=== PATIENT | female | born 2000 | race Caucasian/White ===

== ENCOUNTER 2023-01-29 07:56 | Outpatient (AMB) | payer OTHER, SELFPAY ==
--- NOTE | 2023-01-29 08:00 | AM.OFFWIN_ITS ---
Intake Vital Signs 01/29/23 08:01 Height 5 ft 4 in Weight 238 lb BMI 40.8 BP 128/72 Blood Pressure Location Rt brachial Position Sitting Pulse 73 Pulse Source Pulse Oximeter Temp 97.8 F Temp Source Temporal Artery Scan Pulse Oximetry (%) 98 Intake Visit Reasons: EP Control Intake Note: pt is here forrequesting control Patient Tobacco Use Status: Never used Tobacco Allergies No Known Allergies Allergy (Verified 01/29/23 08:07) Medication List - Last Reconciled 01/29/23 by Raphael Medina MD albuterol sulfate 90 mcg/actuation 1 inh inhalation QID PRN fexofenadine (Martha Allergy) 180 mg PO DAILY Do you need a note to return to daycare/school/sports/work: Yes HPI EP Control HPI Details 22-year-old female presents to the [facility] for a sick visit. She is requesting a prescription for for control medications. Patient is going to be using it for the 1st time. Her primary care provider is not available. Patient has had no residence counselor exam in the past. The pills are for regulate her menstruation and for control. [facility] Medical History (Updated 01/29/23 @ 08:08 by Raphael Medina MD) COVID-19 virus infection Social History Patient Tobacco Use Status: Never used Tobacco Physical Exam Vital Signs: Last Vital Signs Temp 97.8 F 01/29/23 08:01 Pulse 73 01/29/23 08:01 BP 128/72 01/29/23 08:01 Pulse Ox 98 01/29/23 08:01 BMI result Body Mass Index 40.8 Const General: cooperative, healthy appearing and comfortable Assessment & Plan Assessment & Plan (1) BCP ( control pills) initiation: Code(s): Z30.011 - Encounter for initial prescription of contraceptive pills Plan: Urine test was negative for . A residence counselor appointment for a routine Pap smear has been requested. Low-dose estrogen control pills started. Coding Level of Care Code Est Pt Level 3 (34033) Diagnoses BCP ( control pills) initiation Z30.011
[2023-01-29 08:01] VITALS: BP 128/72; PULSE 73; TEMP 36.6; O2SAT 98; BMI 40.8
== END 2023-01-29 08:52 | disposition home or self-care (01) ==
LOC: HO.HMGWI 07:56
PROVIDERS: PCP Hospitalist
DX: Z30.011 Encounter for initial prescription of contraceptive pills (principal); Z32.02 Encounter for pregnancy test, result negative
CPT/HCPCS: 81025; 99213

== ENCOUNTER 2023-04-03 11:56 | Outpatient (AMB) | payer OTHER, SELFPAY ==
--- NOTE | 2023-04-03 13:36 | MHC.OFFWIV ---
Intake Vital Signs 04/03/23 13:38 Height 5 ft 4 in Weight 300 lb BMI 51.5 BP 114/72 Blood Pressure Location Rt brachial Position Sitting Pulse 99 Pulse Source Pulse Oximeter Temp 95.2 F L Temp Source Temporal Artery Scan Pulse Oximetry (%) 100 Oxygen Delivery Method Room Air Intake Visit Reasons: EST/ control(until visit w OBGYN) Intake Note: Pt is here requesting control medication. Patient Tobacco Use Status: Never used Tobacco Allergies No Known Allergies Allergy (Verified 04/03/23 13:37) Do you need a note to return to daycare/school/sports/work: No HPI EST/ control(until visit w OBGYN) HPI Details 22-year-old female presents to the office requesting control pills. She has an upcoming appointment with a child psychometrist. Currently she has no primary care provider. [facility] Medical History (Updated 01/29/23 @ 08:08 by Raphael Medina MD) COVID-19 virus infection Social History Patient Tobacco Use Status: Never used Tobacco Physical Exam Vital Signs: Last Vital Signs Temp 95.2 F L 04/03/23 13:38 Pulse 99 04/03/23 13:38 BP 114/72 04/03/23 13:38 Pulse Ox 100 04/03/23 13:38 Oxygen Delivery Method Room Air 04/03/23 13:38 BMI result Body Mass Index 51.5 Assessment & Plan Assessment & Plan (1) BCP ( control pills) initiation: Code(s): Z30.011 - Encounter for initial prescription of contraceptive pills Plan: Prescription sent in. Medications: Refilled drospirenone-ethinyl estradiol 3-0.02 mg (GERTRUDE (28)) 1 tab PO DAILY 28 tabs 1RF Coding Level of Care Code Est Pt Level 3 (02360) Diagnoses BCP ( control pills) initiation Z30.011
[2023-04-03 13:38] VITALS: BP 114/72; PULSE 99; TEMP 35.1; O2SAT 100; BMI 51.5
== END 2023-04-03 14:47 | disposition home or self-care (01) ==
PROVIDERS: PCP Hospitalist; Visit Provider Internal Medicine
DX: Z30.011 Encounter for initial prescription of contraceptive pills (principal)
CPT/HCPCS: 99213

== ENCOUNTER 2023-05-18 11:45 | Outpatient (AMB) | payer OTHER, SELFPAY ==
[2023-05-18 11:47] VITALS: BP 132/80; BMI 50.3
--- NOTE | 2023-05-18 11:47 | A.OFFVIS_ITS ---
Intake Vital Signs 05/18/23 11:47 Height 5 ft 4 in Weight 293 lb BMI 50.3 BP 132/80 Intake Visit Reasons: New patient Annual Dock Pumper Required: No Information Interpreted: non-clinical & clinical Cloth Finishing Range Operator: Cloth Finishing Range Operator Present (Jaylanyn) Allergies latex Allergy (Mild, Verified 05/18/23 11:50) Rash triethanolamine Allergy (Mild, Verified 05/18/23 11:50) Rash Medication List - Last Reconciled 05/18/23 by Silvia Che CNM albuterol sulfate 90 mcg/actuation 1 inh inhalation QID PRN betamethasone dipropionate 0.05% topical cholecalciferol (vitamin D3) 25 mcg PO DAILY emollient combination no.32 (EpiCeram topical emulsion, extended release) topical DAILY etonogestrel (Nexplanon) subdermal fexofenadine (Martha Allergy) 180 mg PO DAILY [id number] oil 120 mg-180 mg- 60 mg-1,200 mg (Fish Oil) 1 cap PO DAILY tacrolimus 0.1% topical BID Is last menstrual period known: Yes Last menstrual period: 05/03/23 Post menopausal: No HPI New patient Annual HPI Details 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 Initially it was a little bit unclear why she was here in that she told me that she had a Nexplanon put in on the of this month in an office with the midwives somewhere in [place] and that just before that they had done a full physical exam with her with the test for cervical cancer and infections and everything. She says she does not make her appointments and she does not know the names of the midwives her the practice or her primary doctor or anything she says her mother makes all of the appointments for her because she is disabled and has memory issues and depression. 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 She has depression but she is not on any medication because she was told that we would increase her risk for suicide. She got in January. And she says she wanted to she told me she was not sexually active but on further questioning she had sex 3 days ago but she meant that she was not having sex right now. She is not having any problems with abnormal discharge or anything she has a Nexplanon in to not have babies she says her parents tell her all the time that she needs to lose weight but she stress eats and she also feels judged her father bought lots of exercise equipment that they have in the house and she likes doing the cardio on the treadmill and once she did 2 hours watching Netflix thing but usually she only does 5 minutes because she feels judged. She is off for about a month for the [place] break from [employer] she drives herself to work. She does not know who her primary care provider is and if she has ever been checked for diabetes. Her was in the waiting room. [facility] Medical History COVID-19 virus infection Social History Patient Tobacco Use Status: Never used Tobacco Female Reproductive History Menstrual Age of Menarche: 12 Duration of menses: 3-5 days Date of last menstrual period: 05/03/23 control method: implanted Total pregnancies: 0 History of abnormal pap smear: No Physical Exam Vital Signs: BMI result Body Mass Index 50.3 Const Other: Patient maintained good eye contact during the visit she self described as having memory problems and learning disabilities and depression and being disabled because of it but she also stated that she works and in conversation was able to answer most questions thoughtfully and appropriately with the exceptions of names and addresses, which she says she has trouble remembering. Nexplanon palpable in left upper arm. Extreme obesity noted. Pelvic exam deferred as patient states she had just had a pelvic exam with a check for cervical cancer and infections less than a month ago at [facility] mid[facility](she showed me the name of the practice in the phone) General: comfortable, no acute distress, well developed and alert Nutritional Appearance: obese Orientation/consciousness: patient oriented x3 Limitations: no limitations HEENT Head: Yes normocephalic Neck Neck: Yes normal visual inspection Chest Chest palpation & inspection: normal inspection of the chest Breast/axilla inspection: normal inspection of the breasts and normal inspection of the axillae Breast/axilla palpation: normal palpation of the breasts and normal palpation of the axillae Resp Effort & Inspection: normal respiratory effort GI Inspection: Yes normal to inspection, No Abdominal wall edema and No distended Palpation (GI): Soft to palpation and nontender External Female Exam: normal external appearance and normal appearance of the urethra Neuro General: patient oriented x3 Results Reviewed Results Reviewed: There are no records of rattlesnake farmer care from her previous provider available for this patient. There were 3 visits from the walk-in clinic for noted 1 for follow-up from [facility] and to [facility] both in January and March 2023 requesting control pills and initiating control pills. Assessment & Plan Assessment & Plan (1) Obesity, morbid, BMI 50 or higher: Code(s): E66.01 - Morbid (severe) obesity due to excess calories (2) Depression: Code(s): F32.A - Depression, unspecified (3) Nexplanon in place: Comment: Patient states it was inserted by midwives at [facility] 05/07/2023. Code(s): Z97.5 - Presence of (intrauterine) contraceptive device Plan Repeat pelvic exam and cervical cancer screening deferred as probably not necessary and this visit was not scheduled appropriately. Will have patient sign for records to come from [facility] mid[facility] so that we can have baseline information. I also asked the patient to check with her mother about who her primary care provider is and that she definitely needs to be seen and evaluated by primary care but she has no idea who that provider or , or anyone might be. She says her mother makes all of her appointments I encouraged her to find ways to do her cardio exercises for herself, not for others and ways to escape feeling judged to. She said the only way to do was to exercise when her parents were not there, but they were working so I suggested now might be a good time; and encouraged her to try and eat better to work on losing the weight On questioning she informed me that she was glad she was and things were good. 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 Coding Level of Care Code New Pt Prev Care 18-39yr(01308 Diagnoses Obesity, morbid, BMI 50 or higher E66.01 Depression F32.A Nexplanon in place Z97.5
== END 2023-05-18 13:23 | disposition home or self-care (01) ==
LOC: HO.HWS 11:45
PROVIDERS: PCP Hospitalist; Visit Provider Advanced Practice Midwife
DX: Z01.419 Encounter for gynecological examination (general) (routine) without abnormal findings (principal); E66.01 Morbid (severe) obesity due to excess calories; F32.A Depression, unspecified
CPT/HCPCS: 99385

== ENCOUNTER → 2023-05-18 11:45 | Outpatient (BNVA) | payer OTHER, SELFPAY | PROVIDERS: PCP Hospitalist; Visit Provider Advanced Practice Midwife ==

== ENCOUNTER 2024-05-20 10:12 | Outpatient (REF) | payer OTHER, SELFPAY | END 2024-05-20 10:13 | disposition home or self-care (01) | LOC: HO.LNP 10:12 | PROVIDERS: PCP Hospitalist; Visit Provider Advanced Practice Midwife | DX: Z01.419 Encounter for gynecological examination (general) (routine) without abnormal findings (principal); E66.01 Morbid (severe) obesity due to excess calories; Z68.43 Body mass index [BMI] 50.0-59.9, adult; Z97.5 Presence of (intrauterine) contraceptive device | CPT/HCPCS: 88175 ==

== ENCOUNTER 2024-05-20 10:12 | Outpatient (AMB) | payer OTHER, SELFPAY ==
[2024-05-20 10:30] VITALS: BP 110/68; BMI 51.8
--- NOTE | 2024-05-20 10:30 | MHC.OFFVIS ---
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 Her 1st visit this practice was last year. She has a Nexplanon that she says was inserted by somebody in [place] but she still does not know who they were she can feel it if she is working under her arm and sometimes it is uncomfortable for her she does not get periods it is working for her for control she is . She says she and her are looking for house but currently she lives with her parents in [place] [facility] [place]. She is looking for a primary care provider she just got [employer] so she just started looking and she says her mother is helping her. 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 She walks for exercise she says she is working on losing weight. On questioning she admits that she is interested in childbearing. [facility] Medical History COVID-19 virus infection Social History Patient Tobacco Use Status: Never used Tobacco Female Reproductive History Menstrual Age of Menarche: 12 control method: implanted Total pregnancies: 0 History of abnormal pap smear: No (2023 negative per patient) Physical Exam Vital Signs: Last Vital Signs BP 110/68 05/20/24 10:30 BMI result Body Mass Index 51.8 Const Other: Nexplanon is palpable in left arm, appropriately placed. General: healthy appearing, comfortable, no acute distress, well developed and alert Nutritional Appearance: average body habitus and obese Orientation/consciousness: patient oriented x3 Limitations: no limitations HEENT Head: Yes normocephalic Neck Neck: Yes normal visual inspection Chest Chest palpation & inspection: normal inspection of the chest Breast/axilla inspection: normal inspection of the breasts and normal inspection of the axillae Breast/axilla palpation: normal palpation of the breasts and normal palpation of the axillae Resp Effort & Inspection: normal respiratory effort GI Inspection: Yes normal to inspection, No Abdominal wall edema and No distended Palpation (GI): Soft to palpation and nontender Other: Normal external exam vagina pink and moist there is an yellowish slightly runny discharge cervix nulliparous long close thick mobile nontender adnexa nontender uterus difficult to palpate secondary to adipose good tone with Kegel. General: Yes bladder normal to palpation External Female Exam: normal external appearance and normal appearance of the urethra Speculum Exam - Vagina: normal appearance of the vagina, normal palpation and normal vaginal discharge Speculum Exam - Cervix: normal appearance of the cervix, normal palpation and nontender Bimanual exam- vagina & uterus: normal bimanual exam, normal palpation, uterine size normal, bladder normal to palpation, consistency normal, normal palpation, uterine mobility normal, uterine shape normal, No Cervical tenderness present, non-tender and no cervical motion tenderness Bimanual Exam- Adnexa, other: normal adnexae, no masses, normal and No adnexal tenderness Neuro General: patient oriented x3 Assessment & Plan Assessment & Plan (1) Nexplanon in place: Comment: Patient states it was inserted by midwives at [facility] 05/07/20[facility]. Code(s): Z97.5 - Presence of (intrauterine) contraceptive device Category: Social Hx (2) Obesity, morbid, BMI 50 or higher: Code(s): E66.01 - Morbid (severe) obesity due to excess calories Category: Medical (3) Encounter for gynecological examination with Papanicolaou smear of cervix: Code(s): Z01.419 - Encounter for gynecological examination (general) (routine) without abnormal findings Category: Medical (4) Precontemplation stage for readiness to change nutrition behavior: Category: Medical Plan -----Discussed in this visit the following: healthy balanced diet, regular and consistent exercise, getting recommended health screens, doing the best she can for her particular health concerns, kegel exercises, pap smear screening and followup recommendations, mammography screening and SBE, normal changes in cycles in her life stage--- . As we have no records previous Pap smear and patient had stated last year that her exams were done by providers she does not know in [place], Pap smear and testing for STIs was done today. She declined blood work for STIs. I urged her to really try and find a primary care provider as it would be very important for her to get screened for diabetes and other health concerns because of her weight. Additionally if she ever were considering a future it would be very beneficial to her health to work on losing weight 1st in preparation for that. Review that it would be helpful to know where she is health ruth and so I urged finding a primary care provide, as important. Discussed trying to eat healthy and walk as much as possible for exercise . Orders: Orders Pap Smear Today Z00.00 - Encounter for general adult medical examination without abnormal findings CT NG by PCR Today N89.8 - Other specified noninflammatory disorders of vagina, Z20.2 - Contact with and (suspected) exposure to infections with a predominantly sexual mode of transmission Bacterial Vaginosis Panel Today N89.8 - Other specified noninflammatory disorders of vagina Coding Level of Care Code Est Pt Prev Care 18-39y(15150) Diagnoses Nexplanon in place Z97.5 Obesity, morbid, BMI 50 or higher E66.01 Encounter for gynecological examination with Papanicolaou smear of cervix Z01.419 Precontemplation stage for readiness to change nutrition behavior
== END 2024-05-20 11:13 | disposition home or self-care (01) ==
LOC: HO.HWSM 10:12
PROVIDERS: PCP Hospitalist; Visit Provider Advanced Practice Midwife
DX: Z01.419 Encounter for gynecological examination (general) (routine) without abnormal findings (principal); E66.01 Morbid (severe) obesity due to excess calories; Z97.5 Presence of (intrauterine) contraceptive device
CPT/HCPCS: 99395; 99459

== ENCOUNTER 2024-05-20 11:06 | Outpatient (REF) | payer OTHER, SELFPAY ==
[2024-05-20 15:27] LABS: Bacterial Vaginosis PCR POSITIVE (Negative); Candida Group PCR NOT DETECTED (Not Detect); Candida glab krusei PCR NOT DETECTED (Not Detect); Trichomonas vaginalis PCR NOT DETECTED (Not Detect)
[2024-05-20 15:59] LABS: CT PCR NOT DETECTED (Not Detect.); NG PCR NOT DETECTED (Not Detect.)
== END 2024-05-20 11:07 | disposition home or self-care (01) ==
LOC: HO.LAB 11:06
PROVIDERS: Visit Provider Advanced Practice Midwife
DX: N89.8 Other specified noninflammatory disorders of vagina (principal); Z20.2 Contact with and (suspected) exposure to infections with a predominantly sexual mode of transmission
CPT/HCPCS: 0352U; 87491; 87591

== ENCOUNTER → 2024-09-04 11:27 | Outpatient (BNVA) | payer OTHER, MEDICAID, SELFPAY | PROVIDERS: PCP Physician Assistant; Visit Provider Physician Assistant | DX: F41.8 Other specified anxiety disorders (principal); E55.9 Vitamin D deficiency, unspecified | CPT/HCPCS: 96127 ==

== ENCOUNTER 2024-09-08 08:08 | Outpatient (REF) | payer OTHER, MEDICAID, SELFPAY ==
--- OUTSIDE RECORDS SUMMARY | 2024-09-08 08:11 | XMS_ITS | Encounter Summary ---
Author Organization [facility] Address [address] [place] [address] Phone Care Team Providers Care Convalescent Sitter Name Role Phone Pepito Boudreaux MD Primary Care Provider [phone] Encounter Details Date Type Department Care Team (Late st Contact Info) Description 09/14/2014 Documentation [facility] [place] [facility] [address] [place], [place] [id number] Family Medicine, Physician [address], [place] [id number] Social History Tobacco Use Types Packs/Day Years Used Date Smoking Tobacco: Never Assessed Comments Unknown Sex and Gender Information Value Date Recorded Sex Assigned at Female 04/14/2019 10:00 AM EST Legal Sex Female 5:10 PM EDT Gender Identity Female 04/14/2019 10:00 AM EST Sexual Orientation Straight 04/14/2019 10 :00 AM EST documented as of this encounter Plan of Treatment Not on file documented as of this encounter Visit Diagnoses Not on filedocumented in this encounter Care Teams Convalescent Sitter Relationship Specialty Start Date End Date Pepito Boudreaux MD [address] [place] [address] [place] [id number] PCP - General 12/29/16 09/05/22 documented as of this encounter
--- OUTSIDE RECORDS SUMMARY | 2024-09-08 08:11 | XMS_ITS | Clinical Summary ---
Author Organization [facility] Address [address] [place] [address] Phone Care Team Providers Care Gusset Folder Name Role Phone Unavailable Primary Care Provider Unavailabl e Allergies Active Allergy Reactions Criticality Noted Date Comments Latex Rash Medium 03/18/2021 Per pt. Tomato Rash High 03/18/2021 Per pt. Medications D3 Super Strength 50 MCG (1999 UT) capsule Take 1 capsule by mouth once daily. 10/02/2020 Active meloxicam 7.5 MG tablet Take 7.5 mg by mouth 2 (two) times a day as needed. for pain 03/07/2021 Active Active Problems Problem Noted Date Diagnosed Date Current moderate episode of major depressive disorder without prior episode 05/20/2020 Anxiety disorder 05/20/2020 Developmental delay 01/04/2016 Obesity, morbid (more than 1 00 lbs over ideal weight or BMI > 40) 12/02/2009 Immunizations Immunization Administration Dates Next Due DTaP 5 09/09/2003, 3,1999,09/06,1999 HPV, Quadrivalent 01/23/2012,05/02/2011,12/20/19 11 Hep A, ped/adol 12/29/2013,12/19/2010 Hep B, ped/adol 01/04/2000,1999,1999 Hib (HbOC) 10/02/2000, 0,1999,06/28 IPV 06/09/2003, 0,1999,08/03 Influenza, injectable, quadrivalent 02/21/2016 Influenza, injectable, quadr ivalent, preservative free 03/18/2021,04/27/2020,04/14/2019,04/04 Influenza, intranasal, trivalent 01/23/2012,04/20 MMR 06/09/2003,06/13/2000 Meningococcal Conj (Menactra) MCV4P 01/04/2016,0 12/19/2010 Td (adult) (Tenivac), 5 Lf t etanus toxoid, PF, adsorbed 02/21/2016 Tdap 12/19/2010 Varicella 12/16/2007,06/13/2000 Family History Medical History Relation Name Comments ADD / ADHD Brother 1 good Constipation Brother 1 good Other Brother 1 good Autism Brother 2 jose Arthritis Father good Diabetes Father good Achalasia Mother eder Obesity Mother eder Thyroid disease Mother eder ADD / ADHD Other Asthma Other Breast cancer Other Diabetes Other Migraines Other Obesity Other Relation Name Status Comments Brother 1 good Alive Brother: leucom alasia , hyperanemia , gastrochisis Brother 2 jose Alive Father good Alive Father: Alive a nd well Mother eder Alive Mother: analasi a Other Family history of Diabetes mellitus, Family history of Autism, Family history of Cancer, breast, Family history of ADD/ADHD, Family history of Asthma, Family history of Migraines, Family history of *Dental caries, Family history of Obesity Social History Tobacco Use Types Packs/Day Years Used Date Smoking Tobacco: Never Smokeless Tobacco: Never Comments:Never smoker Alcohol Use Standard Drinks/Week Comments No 0 (1 standard drink = 0.6 oz pur e alcohol) Hunger/Food Answer Date Recorded In the last 12 months, did y ou or your family ever eat less than you felt you should because there wasn't enough money for food? No 04/27/2020 Stable Housing Answer Date Recorded Are you worried that in the next 2 months you may not have stable housing? No 04/27/2020 Transportation Concerns Answer Date Rec orded In the last 12 months, have you or your family ever had to go without healthcare because you didn't have a way to get there? No 04/27/2020 Hazards in Home Answer Date Recorded Think about the place you li ve. Do you have problems with any of the following? Pests (mice or roaches), mold, no/not working smoke detectors, water leaks, no window guards. No 2019 Financing Utilities Answer Date Recorde d In the last 12 months, has t he electric, gas, oil, or water company threatened to shut off your services in your home? No 04/27/2020 Safety at Home Answer Date Recorded Are you or your family worried about feeling saf e in your home? No 04/27/2020 Outside Support Answer Date Recorded Do you feel that you need mo re support from other people or programs to help you care for yourself or your family? No 04/27/2020 Understanding Health Concerns Answer Da te Recorded Do you need help understandi ng your or your child's healthcare needs (diagnosis, medications, plan, etc.)? No 04/27/2020 Financing Health Concerns Answer Date R ecorded In the last 12 months, was t here a time when your child needed to see a doctor or get medications or supplies but could not because of cost? No 04/27/2020 Missing School or Work Answer Date Shaheed rded Did you or your child miss s chool or work because of a health problem that could have been avoided? No 04/27/2020 Comments No Sex and Gender Information Value Date Recorded Sex Assigned at Female 04/14/2019 10:00 AM EST Legal Sex Female 5:10 PM EDT Gender Identity Female 04/14/2019 10:00 AM EST Sexual Orientation Straight 04/14/2019 10 :00 AM EST Last Filed Vital Signs Vital Sign Reading Time Taken Comments Blood Pressure 115/71 03/18/2021 2:45 PM EDT Pulse 84 03/18/2021 2:45 PM EDT Temperature 36.6 ??C (97.8 ??F) 03/18/2021 2:45 PM ED T Respiratory Rate - - Oxygen Saturation - - Inhaled Oxygen Concentration - - Weight 129 kg (284 lb 2 oz) 03/18/2021 2:45 PM E DT Height 160 cm (5' 3 ) 03/18/2021 2:45 PM EDT Body Mass Index 50.33 03/18/2021 2:45 PM EDT Plan of Treatment Health Maintenance Due Date Last Done Comments Influenza Vaccines (#1) 2023 03/18/20 21, 04/27/2020, 04/14/2019, Additional history exists COVID-19 Vaccine ( season) 2024 03/23/2021, 03/02/2021 DTaP,Tdap,and Td Vaccines (8 - Td or Tdap) 02/20/2026 02/21/2016, 12/19/2010, 09/09/2003, Additional history exists Hepatitis B Vaccines Completed 01/04/2000, 1999, 1999 HIB Vaccines Completed 10/02/2000, 11/18, 1999, Additional history exists IPV Vaccines Completed 06/09/2003, 11/18, 1999, Additional history exists MMR Vaccines Completed 06/09/2003, 06/13/2000 Varicella Vaccines Completed 12/16/2007, 06/13/2000 HPV Vaccines Completed 01/23/2012, 04/20, 12/19/2010 Hepatitis A Vaccines Completed 12/29/2013, 12/20/19 11 Meningococcal Vaccine Completed 01/04/2016, 011 Men B Vaccine Aged Out No longer elig ible based on patient's age to complete this topic Pneumococcal Vaccine Aged Out No long er eligible based on patient's age to complete this topic Procedures * Due to [place] [employer] law, this organization might not be sharing sensitive test results. Procedure Name Priority Date/Time Associated Diagnosis Comments CHLAMYDIA AND GONORRHEA, AMPLIFIED Routine 05/10/2020 10:14 AM EST Screening examination for bacterial and spirochetal disease from Last 3 Months or Most Recently Relevant to Health Maintenance Results * Due to [place] [employer] law, this organization might not be sharing sensitive test results. * Chlamydia and Gonorrhoea, Amplified (05/10/2020 10:14 AM EST) Chlamydia Trachomatis, DNA Probe NEGATIVE (NEG) [facility] Comment: No Chlamydia Trachomatis RNA detected in this patient's sample ? (REFERENCE RANGE/NORMAL VALUE: NOT DETECTED) ? Note: This test uses project systems engineer- mediated amplification method to detect rRNA from C. Trachomatis URINE GC AMP PROBE NEGATIVE (NEG) [facility] Comment: No Neisseria Gonorrhoeae RNA detected in this patient's sample ? (REFERENCE RANGE/NORMAL VALUE: NOT DETECTED) ? NOTE: This test uses project systems engineer-mediated amplification method to detect rRNA from N.Gonorrhoeae. A negative result does not preclude infection. In the case of a negative urine result, testing of an endocervical(female) or urethral (male) specimen is recommended if there is high clinical suspicion of infection. Due to very high sensitivity of Nucleic Acid Amplification Test, false positive results may occur. Therefore, specimen handling is extremely important. In patients in whom the disease is unlikely, additional sample for testing should be considered after an initial positive result. The performance characteristics of this test have not been evaluated in children. The Aptima Combo2 assay is not intended for the evaluation of suspected sexual abuse or for other medico-legal indications. The ordering provider should assess if the patient had consensual sex without risk of sexual abuse. Consult the [facility] if needed. Contact phone number . Therapeutic failure or success cannot be determined with the Aptima Combo2 assay since nucleic acid may persist following appropriate antimicrobial therapy. The Centers for Disease Control and Prevention (CDC) recommends confirmatory retesting using culture or a different nucleic acid amplification test when positive results occur, if indicated. Testing performed or reported by [facility], a Service of [facility], [facility] [address], [place] [address] Chuckie Gray MD, Supervisor Forming Department Urine 05/10/2020 10:1 4 AM EST 05/10/2020 10:41 AM EST Pepito Boudreaux MD LAB MICROBIOLOGY - GENERAL ORDER DENICE Final Result [facility] from Last 3 Months or Most Recently Relevant to Health Maintenance
--- OUTSIDE RECORDS SUMMARY | 2024-09-08 08:11 | XMS_ITS | Encounter Summary ---
Author Organization [facility] Address [address] [place] [address] Phone Care Team Providers Care Insurance Biller Name Role Phone Pepito Boudreaux MD Primary Care Provider [phone] Encounter Details Date Type Department Care Team (Late st Contact Info) Description 10/02/2009 [place] [facility] [place] [address] [place], [place] [id number] Family Medicine, Physician [address], [place] [address] Social History Tobacco Use Types Packs/Day Years [...] on filedocumented in this encounter Care Teams Insurance Biller Relationship Specialty Start Date End Date Pepito Boudreaux MD [address] [place] [address] [place] [address] PCP - General 12/29/16 09/05/22 documented as of this encounter
--- OUTSIDE RECORDS SUMMARY | 2024-09-08 08:11 | XMS_ITS | Encounter Summary ---
Author Organization [facility] Address [address] [place] [address] Phone Care Team Providers Care Packing Shed Supervisor Name Role Phone Pepito Boudreaux MD Primary Care Provider [phone] Encounter Details Date Type Department Care Team ([facility] st Contact Info) Description 01/04/2017 Conversion Encounter [facility] [address] [place] [address] Social History Tobacco Use Types Packs/Day Years Used Date Smoking Tobacco: Never Comments:Never smoker Comments Unknown Sex and Gender Information Value [...] on filedocumented in this encounter Care Teams Packing Shed Supervisor Relationship Specialty Start Date End Date Pepito Boudreaux MD [address] [place] [address] PCP - General 12/29/16 09/05/22 documented as of this encounter
--- OUTSIDE RECORDS SUMMARY | 2024-09-08 08:11 | XMS_ITS | Encounter Summary ---
Author Organization [facility] Address [address] [place] [address] Phone Care Team Providers Care Director And Professor Name Role Phone Pepito Boudreaux MD Primary Care Provider [phone] Encounter Details Date Type Department Care Team (Late st Contact Info) Description 09/27/2016 Documentation [facility] [place] [address] [place], [place] [id number] Family Medicine, Physician [address] [place] [address] Social History Tobacco Use Types Packs/Day Years [...] on filedocumented in this encounter Care Teams Director And Professor Relationship Specialty Start Date End Date Pepito Boudreaux MD [address] [place] [address] [place] [address] PCP - General 12/29/16 09/05/22 documented as of this encounter
[2024-09-08 10:55] LABS: MANUAL DIFF FLAG NO
[2024-09-08 10:58] LABS: Basophils Absolute Auto 0.1 X10*3/uL (0.0-0.2); Basophils Percent Auto 0.5 % (0-2); Eosinophils Absolute Auto 0.3 X10*3/uL (0.0-0.4); Eosinophils Percent Auto 2.2 % (0-4); Hematocrit 41.4 % (37.0-47.0); Hemoglobin 13.4 g/dl (12.0-16.0); Imm Gran Abs Auto 0.06 X10*3/uL (0.00-0.03); Imm Gran Pct Auto 0.5 % (0.0-0.4); Lymphocytes Absolute Auto 4.7 X10*3/uL (1.2-4.9); Mean Corpuscular HGB Conc 32.4 g/dl (31.0-35.0); Mean Corpuscular Hemoglobin 28.3 pg (27.0-33.0); Mean Corpuscular Volume 87.3 fL (80.0-98.0); Mean Platelet Volume 10.8 fL (9.4-12.3); Monocytes Percent Auto 7.7 % (2-11); Neutrophils Absolute Auto 6.7 x10*3/uL (2.0-8.3); Neutrophils Percent Auto 52.1 % (45-73); Platelet Count 313 X10*3/uL (160-400); Red Blood Count 4.74 X10*6/uL (4.20-5.50); White Blood Count 12.8 X10*3/uL (4.8-10.8)
[2024-09-08 11:08] LABS: Estimated Average Glucose 100 mg/dL; Hemoglobin A1C 114.8364 umol/L; Hemoglobin A1c % 5.1 % (<6.0); Total Hemoglobin (HGBA1C) 3518.4131 umol/L
[2024-09-08 11:16] LABS: Alanine Aminotransferase 16 U/L (0-31); Albumin Level 3.7 g/dL (3.5-5.0); Alkaline Phosphatase 75 U/L (39-117); Anion Gap 11 (12-20); Aspartate Amino Transferase 25 U/L (5-31); Bilirubin Total 0.3 mg/dL (0.0-1.0); Blood Urea Nitrogen 10 mg/dL (9-16); Calcium 9.1 mg/dL (8.4-10.2); Carbon Dioxide 25 mmol/L (22-29); Chloride 109 mmol/L (96-108); Cholesterol 166 mg/dL (<200); Estimated Glomerular Filt Rate > 60; Glucose Fasting 109 mg/dL (60-99); HDL Cholesterol 36 mg/dL (>40); Iron 42 mcg/dL (30-160); LDL Cholesterol Calculated 106 mg/dL (<100); Percent Iron Saturation 17 % (15-50); Potassium 3.8 mmol/L (3.3-5.1); Sodium 141 mmol/L (135-145); Total Iron Binding Capacity 254 mcg/dL (228-428); Total Protein 6.9 g/dL (6.5-8.0); Triglycerides 122 mg/dL (<150); Unsaturated Iron Binding 212 ug/dL
[2024-09-08 11:16] LABS: Appearance Urine Clear; Color Urine Yellow; Glucose Urine UA Negative (Negative); Leukocyte Esterase Urine Negative (Negative); Nitrite Urine Negative (Negative); PH 5.5 (5.0-9.0); Specific Gravity - Urine 1.025 (1.005-1.025); UMIC TRIGGER UACC YES; Urine Blood Moderate (2+) (Negative); Urine Ketones Trace mg/dL (Negative); Urine Protein Negative (Neg-Trace)
[2024-09-08 11:26] LABS: Bacteria Urine 1+ (None Seen); Calcium Oxalate Crystals Urine Present; Hyaline Casts Urine 0-2 /LPF (0-2); Squamous Epithelial Cell Urine 0-2 /HPF (0-2); WBC Urine 0-5 /HPF (0-5)
[2024-09-08 11:35] LABS: TSH reflex Free T4 1.47 uIU/mL (0.32-4.0); Vitamin D 25-OH Total 44.5 ng/mL (>30)
[2024-09-08 11:43] LABS: Folate 9.8 ng/mL (> or = 4.0); Vitamin B12 417 pg/mL (200-900)
== END 2024-09-08 08:09 | disposition home or self-care (01) ==
LOC: HO.WFDLDS 08:08
PROVIDERS: Visit Provider Physician Assistant
DX: Z00.00 Encounter for general adult medical examination without abnormal findings (principal); R73.01 Impaired fasting glucose; E55.9 Vitamin D deficiency, unspecified; F41.8 Other specified anxiety disorders; Z13.6 Encounter for screening for cardiovascular disorders
CPT/HCPCS: 36415; 80053; 80061; 81001; 81003; 82306; 82607; 82746; 83036; 83540; 83735; 84443; 85025

== ENCOUNTER 2024-09-16 08:17 | Outpatient (REF) | payer OTHER, MEDICAID, SELFPAY ==
--- OUTSIDE RECORDS SUMMARY | 2024-09-16 08:33 | XMS_ITS | Encounter Summary ---
Author Organization [facility] Address [address] [place] [address] Phone Care Team Providers Care Supervisor Customer Records Division Name Role Phone Pepito Boudreaux MD Primary Care Provider [phone] Encounter Details Date Type Department Care Team (Late st Contact Info) Description 10/02/2009 Documentation [facility] [place] Medicine [address] [place] [address] Family Medicine, Physician [address] [place], [place] [address] Social History Tobacco Use Types Packs/Day Years [...] on filedocumented in this encounter Care Teams Supervisor Customer Records Division Relationship Specialty Start Date End Date Pepito Boudreaux MD [address] [place] [address] [place] [address] PCP - General 12/29/16 09/05/22 documented as of this encounter
--- OUTSIDE RECORDS SUMMARY | 2024-09-16 08:33 | XMS_ITS | Clinical Summary ---
Author Organization [facility] Address [address] [place] [address] Phone Care Team Providers Care Third Officer Name Role Phone Unavailable Primary Care Provider [...] complete this topic Procedures * Due to [place] [employer] law, this organization might not be sharing sensitive test results. Procedure Name Priority Date/Time Associated Diagnosis Comments CHLAMYDIA AND GONORRHEA, AMPLIFIED Routine 05/10/2020 10:14 AM EST Screening examination for bacterial and spirochetal disease from Last 3 Months or Most Recently Relevant to Health Maintenance Results * Due to [place] [employer] law, this organization might not be sharing sensitive test results. * Chlamydia and Gonorrhoea, Amplified (05/10/2020 10:14 AM EST) Chlamydia Trachomatis, DNA Probe NEGATIVE (NEG) [facility] Comment: No Chlamydia Trachomatis RNA detected in this patient's sample ? (REFERENCE RANGE/NORMAL VALUE: NOT DETECTED) ? Note: This test uses broiler supervisor- mediated amplification method to detect rRNA from C. Trachomatis URINE GC AMP PROBE NEGATIVE (NEG) [facility] Comment: No Neisseria Gonorrhoeae RNA detected in this patient's sample ? (REFERENCE RANGE/NORMAL VALUE: NOT DETECTED) ? NOTE: This test uses broiler supervisor-mediated amplification method to detect rRNA from N.Gonorrhoeae. [...] without risk of sexual abuse. Consult the [facility] if needed. Contact phone number . Therapeutic failure or success cannot be determined with the Aptima Combo2 assay since nucleic acid may persist following appropriate antimicrobial therapy. The Centers for Disease Control and Prevention (CDC) recommends confirmatory retesting using culture or a different nucleic acid amplification test when positive results occur, if indicated. Testing performed or reported by [facility], a Service of [facility], [facility] [address], [place] [address] Chuckie Gray MD, Logistics Coordinator Urine 05/10/2020 10:1 4 AM EST 05/10/2020 10:41 AM EST Pepito Boudreaux MD LAB MICROBIOLOGY - GENERAL ORDER DENICE Final Result [facility] from Last 3 Months or Most Recently Relevant to Health Maintenance
--- OUTSIDE RECORDS SUMMARY | 2024-09-16 08:33 | XMS_ITS | Encounter Summary ---
Author Organization [facility] Address [address] [place] [address] Phone Care Team Providers Care Soft Top Installer Name Role Phone Pepito Boudreaux MD Primary Care Provider [phone] Encounter Details Date Type Department Care Team (Late st Contact Info) Description 09/27/2016 Documentation [facility] [place] Family Medicine [address] [place], [place] [id number] Family Medicine, Physician [address] [place] [address] Social History Tobacco Use Types Packs/Day Years [...] on filedocumented in this encounter Care Teams Soft Top Installer Relationship Specialty Start Date End Date Pepito Boudreaux MD [address] [place] [address] [place] [address] PCP - General 12/29/16 09/05/22 documented as of this encounter
--- OUTSIDE RECORDS SUMMARY | 2024-09-16 08:33 | XMS_ITS | Encounter Summary ---
Author Organization [facility] Address [address] [place] [address] Phone Care Team Providers Care Casting And Locker Room Servicer Name Role Phone Pepiot Boudreaux MD Primary Care Provider [phone] Encounter Details Date Type Department Care Team ([facility] st Contact Info) Description 01/04/2017 Conversion Encounter [facility] [address] [place] [address] Social History Tobacco Use Types Packs/Day Years [...] on filedocumented in this encounter Care Teams Casting And Locker Room Servicer Relationship Specialty Start Date End Date Pepito Boudreaux MD [address] [place] [address] PCP - General 12/29/16 09/05/22 documented as of this encounter
--- OUTSIDE RECORDS SUMMARY | 2024-09-16 08:33 | XMS_ITS | Encounter Summary ---
Author Organization [facility] Address [address] [place] [address] Phone Care Team Providers Care Technical Sales Manager Name Role Phone Pepito Boudreaux MD Primary Care Provider [phone] Encounter Details Date Type Department Care Team (Late st Contact Info) Description 09/14/2014 Documentation [facility] [place] [address] [place], [place] [phone] Family Medicine, Physician [address] [place], [place] [address] Social History Tobacco Use Types Packs/Day Years [...] on filedocumented in this encounter Care Teams Technical Sales Manager Relationship Specialty Start Date End Date Pepito Boudreaux MD [address] [place] [address] [place] [address] PCP - General 12/29/16 09/05/22 documented as of this encounter
[2024-09-16 11:39] LABS: Appearance Urine Clear; Color Urine Yellow; Glucose Urine UA Negative (Negative); Leukocyte Esterase Urine Small (1+) (Negative); Nitrite Urine Negative (Negative); UMIC TRIGGER UACC YES; Urine Blood Negative (Negative); Urine Ketones Negative (Negative); Urine Protein Negative (Neg-Trace)
[2024-09-16 12:02] LABS: Bacteria Urine 1+ (None Seen); Hyaline Casts Urine 0-2 /LPF (0-2); RBC Urine 0-2 /HPF (0-2); UACC Culture Trigger YES
== END 2024-09-16 08:18 | disposition home or self-care (01) ==
LOC: HO.WFDLDS 08:17
PROVIDERS: Visit Provider Physician Assistant
DX: Z00.00 Encounter for general adult medical examination without abnormal findings (principal); R31.9 Hematuria, unspecified; D72.829 Elevated white blood cell count, unspecified; Z13.220 Encounter for screening for lipoid disorders; F41.8 Other specified anxiety disorders; E55.9 Vitamin D deficiency, unspecified
CPT/HCPCS: 81001; 87086

== ENCOUNTER 2024-10-18 07:10 | Outpatient (REF) | payer OTHER, MEDICAID, SELFPAY ==
--- OUTSIDE RECORDS SUMMARY | 2024-10-18 07:13 | XMS_ITS | Encounter Summary ---
Author Organization [facility] Address [address] [place] [address] Phone Care Team Providers Care Deicer Inspector Electric Name Role Phone Pepito Boudreaux MD Primary Care Provider [phone] Encounter Details Date Type Department Care Team (Late st Contact Info) Description 10/02/2009 Documentation [facility] [place] [address] [place] [address] Family Medicine, Physician [address] [place], [place] [address] Social History Tobacco Use Types Packs/Day Years [...] on filedocumented in this encounter Care Teams Deicer Inspector Electric Relationship Specialty Start Date End Date Pepito Boudreaux MD [address] [place] [address] [place] [address] PCP - General 12/29/16 09/05/22 documented as of this encounter
[2024-10-18 07:22] LABS: MANUAL DIFF FLAG NO
[2024-10-18 07:54] LABS: Basophils Absolute Auto 0.1 X10*3/uL (0.0-0.2); Basophils Percent Auto 0.8 % (0-2); Eosinophils Absolute Auto 0.2 X10*3/uL (0.0-0.4); Hematocrit 42.8 % (37.0-47.0); Imm Gran Abs Auto 0.06 X10*3/uL (0.00-0.03); Imm Gran Pct Auto 0.5 % (0.0-0.4); Lymphocytes Absolute Auto 3.7 X10*3/uL (1.2-4.9); Lymphocytes Percent Auto 32.9 % (20-40); Mean Corpuscular HGB Conc 32.7 g/dl (31.0-35.0); Mean Corpuscular Hemoglobin 28.2 pg (27.0-33.0); Mean Corpuscular Volume 86.1 fL (80.0-98.0); Mean Platelet Volume 10.5 fL (9.4-12.3); Monocytes Absolute Auto 0.8 X10*3/uL (0.1-1.2); Monocytes Percent Auto 7.1 % (2-11); Neutrophils Absolute Auto 6.4 x10*3/uL (2.0-8.3); Neutrophils Percent Auto 56.7 % (45-73); Platelet Count 304 X10*3/uL (160-400); Red Blood Count 4.97 X10*6/uL (4.20-5.50); Red Cell Distribution Width 12.7 % (11.0-16.0); White Blood Count 11.3 X10*3/uL (4.8-10.8)
[2024-10-18 08:42] LABS: Appearance Urine Clear; Color Urine Yellow; Glucose Urine UA Negative (Negative); Leukocyte Esterase Urine Trace (Negative); Nitrite Urine Negative (Negative); PH 5.5 (5.0-9.0); Specific Gravity - Urine 1.025 (1.005-1.025); UMIC TRIGGER UACC YES; Urine Blood Negative (Negative); Urine Ketones Negative (Negative); Urine Protein Negative (Neg-Trace)
[2024-10-18 09:21] LABS: Bacteria Urine Trace (None Seen); Hyaline Casts Urine 0-2 /LPF (0-2); RBC Urine 0-2 /HPF (0-2); WBC Urine 0-5 /HPF (0-5)
== END 2024-10-18 07:11 | disposition home or self-care (01) ==
LOC: HO.LAB 07:10
PROVIDERS: PCP Physician Assistant Medical; Visit Provider Physician Assistant
DX: D72.829 Elevated white blood cell count, unspecified (principal); R31.9 Hematuria, unspecified
CPT/HCPCS: 36415; 81001; 81003; 85025

== ENCOUNTER 2025-01-07 10:27 | Outpatient (REF) | payer OTHER, MEDICAID, SELFPAY ==
[2025-01-07 11:12] LABS: MANUAL DIFF FLAG NO
[2025-01-07 11:17] LABS: Hematocrit 40.5 % (37.0-47.0); Hemoglobin 13.5 g/dl (12.0-16.0); Imm Gran Abs Auto 0.08 X10*3/uL (0.00-0.03); Imm Gran Pct Auto 0.8 % (0.0-0.4); Lymphocytes Absolute Auto 3.7 X10*3/uL (1.2-4.9); Mean Corpuscular HGB Conc 33.3 g/dl (31.0-35.0); Mean Corpuscular Hemoglobin 28.4 pg (27.0-33.0); Mean Corpuscular Volume 85.1 fL (80.0-98.0); NRBC Abs Auto 0.000 X10*3/uL (0.0-0.012); NRBC Pct Auto 0.0 /100WBC (0.0-0.2); Platelet Count 294 X10*3/uL (160-400); Red Blood Count 4.76 X10*6/uL (4.20-5.50); White Blood Count 9.6 X10*3/uL (4.8-10.8)
--- OUTSIDE RECORDS SUMMARY | 2025-01-07 11:42 | XMS_ITS | Clinical Summary ---
Author Organization [facility] Address [address] [place] [address] [place] [address] Phone Care Team Providers Care Computer Analyst Name Role Phone Anni Daniel Primary Care Provider +1- [phone] Allergies Active Allergy Reactions Criticality Noted Date Comments Latex Rash Medium 03/18/2021 Per pt. Tomato Rash High 03/18/2021 Per pt. Medications ibuprofen (ADVIL,MOTRIN) 600 MG tablet Take 1 tablet (600 mg total) by mouth 3 (three) times a day for 3 days. Then tid prn pain/inflam mation 30 tablet 11/07/2024 Active Active Problems No known active problems Encounters Date Type Department Care Team Description 11/07/2024 5:54 PM EDT Hospital Encounter [facility] [address] [place] [address] Lanette Hill FNP 11/07/2024 5:54 PM EDT Hospital Encounter [facility] [address] [place] [address] Lanette Hill FNP 11/07/2024 5:20 PM EDT Office Visit [facility] at [address] [address] Lanette Hill FNP Pain in both feet (Primary Dx) from Last 3 Months Social History Tobacco Use Types Packs/Day Years [...] on file Sexual Orientation Not on file Last Filed Vital Signs Vital Sign Reading Time Taken Comments Blood Pressure 141/99 11/07/2024 5:27 PM EDT Pulse 66 11/07/2024 5:27 PM EDT Temperature 36.7 C (98 F) 11/07/2024 5:27 PM EDT Respiratory Rate 18 11/07/2024 5:27 PM EDT Oxygen Saturation 100% 11/07/2024 5:27 PM EDT Inhaled Oxygen Concentration - - Weight 140 kg (308 lb 9.6 oz) 06/10/2022 2:05 PM EST Height 162.6 cm (5' 4 ) 06/10/2022 2:05 PM EST Body Mass Index 52.97 06/10/2022 2:05 PM EST Plan of Treatment Health Maintenance Due Date Last Done Comments DEPRESSION SCREENING 2011 HPV VACCINES (1 - 3-dose series) 2014 HEPATITIS C SCREENING 2017 HIV ONE-TIME SCREENING (18-6 5 YEARS) 2017 PAP SMEAR 2020 Adult Td,Tdap Booster 12/19/2020 12/19/2010 COVID-19 VACCINE ( - 2023-2 5 season) 2024 SMOKING Hx and SMOKELESS TOB ACCO SCREENING 11/07/2025 11/07/2024 HEPATITIS A VACCINES Aged Out No long er eligible based on patient's age to complete this topic HIB VACCINES Aged Out No longer eligi ble based on patient's age to complete this topic MENINGOCOCCAL VACCINES (ACWY) Aged Out No longer eligible based on patient's age to complete this topic MENINGOCOCCAL VACCINES (B) Aged Out N o longer eligible based on patient's age to complete this topic PNEUMOCOCCAL VACCINES (0-49 years) Aged Out No longer eligible based on patient's age to complete this topic Medical Devices Not on file Procedures Procedure Name Priority Date/Time Associated Diagnosis Comments XR FOOT 3 OR MORE VIEWS (RIGHT) Urgent/patient waiting 11/07/2024 6:03 PM EDT Pain in both feet XR FOOT 3 OR MORE VIEWS (LEFT) Urgent/patient waiting 11/07/2024 6:03 PM EDT Pain in both feet from Last 3 Months Results * XR FOOT 3 OR MORE [...] No fracture or dislocation of either foot. Lanette Hill PROPERTY CARETAKER IMG XR LOWER EXTREMITY Rosa Maria l Result * XR FOOT 3 OR MORE VIEWS [...] clinician's provided indication for this examination in [facility]: Pain; 10 days ago, pain and pop [...] clinician's provided indication for this examination in [facility]:Pain; 10 days ago, pain and pop over 5th mcp while walking. still hurts COMPARISON: None FINDINGS: Left foot: Normal alignment. Normal joint spaces. No soft tissue swelling. Right foot: Normal alignment. Normal joint spaces. No soft tissueswelling. IMPRESSION: No fracture or dislocation of either foot. Lanette Hill PROPERTY CARETAKER IMG XR LOWER EXTREMITY Rosa Maria l Result from Last 3 Months Insurance [facility] [place] [facility] [place] [facility] [employer] Care Teams Computer Analyst Relationship Specialty Start Date End Date Anni Daniel PA PCP - General Physician Water Main Installer Helper 11/07/24 Additional Source Comments The information contained in this document represents components of the legal health record. It is not the complete legal health record.[facility]
--- OUTSIDE RECORDS SUMMARY | 2025-01-07 11:42 | XMS_ITS | Encounter Summary ---
Author Organization [facility] Address [address] [place] [address] Phone Care Team Providers Care Accounting Consultant Name Role Phone Pepito Boudreaux MD Primary Care Provider [phone] Encounter Details Date Type Department Care Team (Late st Contact Info) Description 10/02/2009 Documentation [facility] [address] [place] [address] Family Medicine, Physician [address] [place], [place] [address] Social History Tobacco Use Types Packs/Day Years [...] on filedocumented in this encounter Care Teams Accounting Consultant Relationship Specialty Start Date End Date Pepito Boudreaux MD [address] [place] [address] [place] [address] PCP - General 12/29/16 09/05/22 documented as of this encounter
== END 2025-01-07 10:28 | disposition home or self-care (01) ==
LOC: HO.WFDLDS 10:27
PROVIDERS: Visit Provider Physician Assistant
DX: D72.829 Elevated white blood cell count, unspecified (principal)
CPT/HCPCS: 36415; 85025

== ENCOUNTER 2025-01-27 12:59 | Outpatient (AMB) | payer OTHER, MEDICAID, SELFPAY ==
--- OUTSIDE RECORDS SUMMARY | 2024-11-07 17:54 | XMS_ITS | Encounter Summary ---
Author Organization [facility] Address [address] [place] [address] [place] [address] Phone Care Team Providers Care Aligning Inspector Name Role Phone Anni Daniel Primary Care Provider +1- [phone] Encounter Details Date Type Department Care Team (Late st Contact Info) Description 11/07/2024 5:54 PM EDT Hospital Encounter [facility] [address] [place] [address] Lanette Hill FNP [address] [place] [address] [email or web address] Social History Tobacco Use Types Packs/Day Years [...] dislocation of either foot. us Lanette Hill HEAD OPERATOR IMG XR LOWER EXTREMITY Rosa Maria l Result documented in this encounter Visit Diagnoses Not on filedocumented in this encounter Care Teams Aligning Inspector Relationship Specialty Start Date End Date Anni Daniel PA PCP - General Physician Anesthesiology Fellow 11/07/24 documented as of this encounter Additional Source Comments The information contained in this document represents components of the legal health record. It is not the complete legal health record.[facility]
--- OUTSIDE RECORDS SUMMARY | 2024-11-07 17:54 | XMS_ITS | Encounter Summary ---
Author Organization [facility] Address [address] [place] [address] [place] [address] Phone Care Team Providers Care Scales Inspector Name Role Phone Anni Daniel Primary Care Provider +1- [phone] Encounter Details Date Type Department Care Team (Late st Contact Info) Description 11/07/2024 5:54 PM EDT Hospital Encounter [facility] [address] [place] [address] Lanette Hill FNP [address] [place] [phone] [email or web address] Social History Tobacco Use Types Packs/Day Years [...] dislocation of either foot. us Lanette Hill EXCHANGE TELLER IMG XR LOWER EXTREMITY Rosa Maria l Result documented in this encounter Visit Diagnoses Not on filedocumented in this encounter Care Teams Scales Inspector Relationship Specialty Start Date End Date Anni Daniel PA PCP - General Physician Herb Doctor 11/07/24 documented as of this encounter Additional Source Comments The information contained in this document represents components of the legal health record. It is not the complete legal health record.[facility]
--- NOTE | 2025-01-27 13:02 | A.OFFPC_ITS ---
Vital Signs 3 01/27/25 13:07 Height 5 ft 4 in Weight 324 lb 2 oz BMI 55.6 BP 140/76 H Blood Pressure Location Rt femoral Position Sitting Respiration 13 Pulse 95 Pulse Source Pulse Oximeter Temp 97.2 F Temp Source Oral Pulse Oximetry (%) 98 Oxygen Delivery Method Room Air Intake Visit Reasons: hives allergy coming back Intake Note: Patient c/o itchy hives all over body on and off for the past 1 week. Steel Handler Required: No Allergies latex Allergy (Mild, Verified 01/27/25 13:07) Rash triethanolamine Allergy (Mild, Verified 01/27/25 13:07) Rash Medication List - Last Reconciled 01/27/25 by YAO Blackwell- albuterol sulfate 90 mcg/actuation 1 inh inhalation QID PRN etonogestrel (Nexplanon) subdermal No Known Home Meds Tobacco use date assessed: 09/04/24 Dental Screening Dental Screen Date: 09/04/24 HPI HPI Comments 2 History of Present Illness0 Details History of Present Illness - The patient is a 24-year-old female pr esenting with recurrent urticaria. - Initial visit to walk-in clinic on Dec; prednisone given. Work up reviewed. - Symptom reprieve followed by return of hives after discontinuing corticosteroid. She stopped prednisone 3 days ago. - Urticaria localized to face, hands, ba ck of neck, with significant itching - Swelling initially severe around eyes, this is resolved. - Symptoms described as variable in appe arance, dark, and episodically reddened. - Clusters recently observed on thighs - Reports no prior history of urticaria or active allergy evaluations, no current antihistamine use. - Admits lots of anxiety - Reviewed triggers/causes. Denies. Review of Systems - Skin: Reports recurrent hives with ass ociated itching and swelling, especially around the eyes, hands, and thighs. - Eyes: Reports swelling around eyes. - Musculoskeletal: Reports discomfort wi th walking due to thigh hives. - Neurological: Denies loss of vision. Physical Exam General: Well developed, well nourished, in no acute distress. Appears stated age. Head: Normocephalic, atraumatic. Eyes: Pupils are equal, round and reactive to light and accommodation. Conjunctivae are clear. Vision grossly normal. Lungs: Clear to auscultation bilaterally. No rales, rhonchi or wheeze noted. Good air flow in all mueller. Heart: Regular rate and rhythm. No murmurs, click, rubs or gallops are noted. Pulses: Peripheral pulses are equal and palpable bilaterally. Extremities: No clubbing, cyanosis nor edema is noted. No hives today. See picture of hives @ initial presentation. Psych: Mood and affect appropriate Discussion Notes I discussed with the patient the likely diagnosis of chronic urticaria and explained that while prednisone provided initial relief, the recurrence indicates a need for ongoing management. I recommended transitioning to antihistamine therapy, to be taken twice daily, to manage symptoms and prevent future occurrences. We also discussed the role of trim setter evaluation to identify potential triggers, especially since the hives are recurrent. I explained the importance of continuing to monitor symptoms and instructed her on utilizing our patient portal for timely scheduling. Use hydroxyzine to aide in pruritis. Referral to an trim setter was advised,referral placed Patient was given time to ask questions. All questions were answered to their satisfaction. Assessment and Plan 1. Chronic Urticaria - Zyrtec 10mg twice daily for one month. Hydroxyzine 10mg TID PRN Itch - Referral to trim setter. - Follow-up scheduled in February with [facility], sooner as needed. Patient Instructions - Take the prescribed antihistamine ever y morning and evening for one month. - Expect a call from [facility] to de maggie an appointment and follow through with the trim setter referral. - Use the patient portal for scheduling future appointments if needed. - Monitor symptoms and report any worsen ing or concerns. - Follow-up with your primary care jamie healy as planned in February. Consent Patient was informed and verbally consented to the use of an ambient scribe for clinic note documentation during this visit. Total time spent caring for the patient today was 30 minutes. This includes time spent before the visit reviewing the chart, time spent during the visit, and time spent after the visit on documentation, reviewing laboratory results, diagnostic imaging, medications, performing a medically necessary evaluation, counseling on diagnoses, care coordination, ordering appropriate tests, ordering appropriate medications, review of tests performed by other providers, reporting test results with the patient, communication with other healthcare providers. 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 1. Little interest or pleasure in doing things: not at all 2. Feeling down, depressed, or hopeless: not at all 3. Trouble falling or staying asleep, or sleeping too much: not at all 4. Feeling tired or having little energy: not at all 5. Poor appetite or overeating: not at all 6. Feeling bad about yourself - or that you are a failure or have let yourself or your family down: not at all 7. Trouble concentrating on things, such as reading the newspaper or watching television: not at all 8. Moving or speaking so slowly that other people could have noticed. Or the opposite - being so fidgety or restless that you have been moving around a lot more than usual: not at all 9. Thoughts that you would be better off or of hurting yourself in some way: not at all Total score: 0 Depression Screening Interpretation: Negative Depression Screening Done: Yes 57664 - PHQ-9 Billing: Yes Source: Developed by Drs. Chino Cade, Lorelei Gonzalez, Manish Hilliard and colleagues, with an educational pattie from [employer]. Thrive Questionnaire Date Thrive assessed: 01/27/25 I am a: Patient What is your living situation today?: I have a steady place to live Within the past 12 months, did the food you bought not last and you didn't have the money to get more?: Never true Within the past 12 months, did you worry whether your food would run out before you got money to buy more?: Never true Do you have trouble paying for medicines?: No Do you have trouble getting transportation to medical appointments?: No Do you have trouble paying your heating and electricity bill?: No Do you have trouble taking care of your child, family member or friend?: No Do you have trouble with day-to-day activities such as bathing, preparing meals, shopping, managing finances, etc.?: No Are you currently unemployed and looking for a job?: No Are you interested in more education?: No THRIVE Score: 0 MARLENI-7 AMB Questionnaire MARLENI-7 Date MARLENI - 7 assessed: 01/27/25 Feeling nervous, anxious, or on edge: 0 = Not at all Not being able to stop or control worryin = Not at all Worrying too much about different things: 0 = Not at all Trouble relaxin = Not at all Being so restless that it is hard to sit still: 0 = Not at all Becoming easily annoyed or irritable: 0 = Not at all Feeling afraid as if something awful might happen: 0 = Not at all Total MARLENI-7 score (0-4 normal; 5-9 mild; 10-14 moderate; 15-21 severe): 0 Source: Developed by Drs. Chino Cade, Lorelei Gonzalez, Manish Hilliard and colleagues, with an educational pattie from [employer]. MARLENI-7 Assessment Billing MARLENI-7 Assessment Tool: MARLENI-7 Assessment 78632 Physical exam (Primary Care) Vital Signs: Last Vital Signs Temp 97.2 F 01/27/25 13:07 Pulse 95 01/27/25 13:07 Resp 13 01/27/25 13:07 BP 140/76 H 01/27/25 13:07 Pulse Ox 98 01/27/25 13:07 Oxygen Delivery Method Room Air 01/27/25 13:07 BMI result Body Mass Index 55.6 BMI Assessment/Plan discussion: High BMI High, discussed plan: lifestyle Tobacco/Smoking Status: Tobacco use Status Tobacco use date assessed 09/04/24 01/27/25 13:03 Patient Tobacco Use Status Never used Tobacco 01/27/25 13:03 e-Cigarette/Vaping Use Never Used 01/27/25 13:03 PHQ-9: PHQ-9 Score PHQ-9: Total score 0 01/27/25 13:45 Depression Screening Interpretation: Negative Thrive Assessment: Date of Thrive Assessment Date Thrive assessed 01/27/25 01/27/25 13:03 Coding Level of Care Code Est Pt Level 4 (46295) Complex EM visit Add On G2211 Diagnoses Urticaria L50.9 Obesity, morbid, BMI 50 or higher E66.01 Hospital discharge follow-up Z09 Additional Codes MARLENI-7 Assessment Billing - MARLENI-7 Assessment Tool: MARLENI-7 Assessment 61368 ([id number]) PHQ-9 - 49540 - PHQ-9 Billing: Yes ([id number]) Assessment & Plan Assessment & Plan (1) Urticaria: Code(s): L50.9 - Urticaria, unspecified Category: Medical (2) Obesity, morbid, BMI 50 or higher: Code(s): E66.01 - Morbid (severe) obesity due to excess calories Category: Medical (3) Hospital discharge follow-up: Code(s): Z09 - Encounter for follow-up examination after completed treatment for conditions other than malignant neoplasm Plan . Orders: Referrals 2 Allergy & Immunology Referral L50.9 - Urticaria, unspecified Medications: New 2 cetirizine (Zyrtec) 10 mg PO BID 60 tabs 1RF hydroxyzine HCl 10 mg PO TID PRN 30 tabs 0RF itching
[2025-01-27 13:07] VITALS: BP 140/76; PULSE 95; RESP 13; TEMP 36.2; O2SAT 98; BMI 55.6
--- OUTSIDE RECORDS SUMMARY | 2025-01-27 15:16 | XMS_ITS | Clinical Summary ---
Author Organization [facility] Address [address] [place] [address] Phone Care Team Providers Care Silk Screen Printer Name Role Phone Unavailable Primary Care Provider [...] 84 03/18/2021 2:45 PM EDT Temperature 36.6 C (97.8 F) 03/18/2021 2:45 PM EDT Respiratory Rate - - Oxygen Saturation - - Inhaled Oxygen Concentration - - Weight 129 kg (284 lb 2 oz) 03/18/2021 2:45 PM E DT Height 160 cm (5' 3 ) 03/18/2021 2:45 PM EDT Body Mass Index 50.33 03/18/2021 2:45 PM EDT Plan of Treatment Health Maintenance Due Date Last Done Comments Influenza Vaccines (#1) 2024 03/18/20 21, 04/27/2020, 04/14/2019, Additional history exists COVID-19 Vaccine (3 season) 2025 03/23/2021, 03/02/2021 DTaP,Tdap,and Td Vaccines (8 - [...] complete this topic Procedures * Due to [place] law, this organization might not be sharing sensitive test results. Procedure Name Priority Date/Time Associated Diagnosis Comments CHLAMYDIA AND GONORRHEA, AMPLIFIED Routine 05/10/2020 10:14 AM EST Screening examination for bacterial and spirochetal disease from Last 3 Months or Most Recently Relevant to Health Maintenance Results * Due to [place] law, this organization might not be sharing sensitive test results. * Chlamydia and Gonorrhoea, Amplified (05/10/2020 10:14 AM EST) Chlamydia Trachomatis, DNA Probe NEGATIVE (NEG) [facility] Comment: No Chlamydia Trachomatis RNA detected in this patient's sample (REFERENCE RANGE/NORMAL VALUE: NOT DETECTED) Note: This test uses optometric aide- mediated amplification method to detect rRNA from C. Trachomatis URINE GC AMP PROBE NEGATIVE (NEG) [facility] Comment: No Neisseria Gonorrhoeae RNA detected in this patient's sample (REFERENCE RANGE/NORMAL VALUE: NOT DETECTED) NOTE: This test uses optometric aide-mediated amplification method to detect rRNA from N.Gonorrhoeae. [...] without risk of sexual abuse. Consult the [facility] if needed. Contact phone number . Therapeutic failure or success cannot be determined with the Aptima Combo2 assay since nucleic acid may persist following appropriate antimicrobial therapy. The Centers for Disease Control and Prevention (CDC) recommends confirmatory retesting using culture or a different nucleic acid amplification test when positive results occur, if indicated. Testing performed or reported by [facility], a Service of [facility], [address] [facility] [address] Chuckie Gray MD, Woodworker Urine 05/10/2020 10:1 4 AM EST 05/10/2020 10:41 AM EST us Pepito Boudreaux MD LAB MICROBIOLOGY - GENERAL ORDER DENICE Final Result [facility] from Last 3 Months or Most Recently Relevant to Health Maintenance
--- OUTSIDE RECORDS SUMMARY | 2025-01-27 15:16 | XMS_ITS | Encounter Summary ---
Author Organization [facility] Address [address] [place] [address] Phone Care Team Providers Care Bending Frame Operator Name Role Phone Pepito Boudreaux MD Primary Care Provider [phone] Encounter Details Date Type Department Care Team ([facility] st Contact Info) Description 01/04/2017 Conversion Encounter [facility] [address] [place] [address] Social History Tobacco Use Types Packs/Day Years [...] on filedocumented in this encounter Care Teams Bending Frame Operator Relationship Specialty Start Date End Date Pepito Boudreaux MD [address] [place] [address] PCP - General 12/29/16 09/05/22 documented as of this encounter
--- OUTSIDE RECORDS SUMMARY | 2025-01-27 15:16 | XMS_ITS | Encounter Summary ---
Author Organization [facility] Address [address] [place] [address] Phone Care Team Providers Care Grain Blender Name Role Phone Pepito Boudreaux MD Primary Care Provider [phone] Encounter Details Date Type Department Care Team (Late st Contact Info) Description 09/27/2016 Documentation [facility] [place] [address] [place], [place] [id number] Family Medicine, Physician [address] [place] [address] Social History Tobacco Use Types Packs/Day Years [...] on filedocumented in this encounter Care Teams Grain Blender Relationship Specialty Start Date End Date Pepito Boudreaux MD [address] [place] [address] [place] [address] PCP - General 12/29/16 09/05/22 documented as of this encounter
--- OUTSIDE RECORDS SUMMARY | 2025-01-27 15:16 | XMS_ITS | Encounter Summary ---
Author Organization [facility] Address [address] [place] [address] Phone Care Team Providers Care Rural Health Consultant Name Role Phone Pepito Boudreaux MD Primary Care Provider [phone] Encounter Details Date Type Department Care Team (Late st Contact Info) Description 10/02/2009 Documentation [facility] [place] [address] [place] [address] Family Medicine, Physician [address] [place], [place] [address] Social History Tobacco Use Types Packs/Day Years [...] on filedocumented in this encounter Care Teams Rural Health Consultant Relationship Specialty Start Date End Date Pepito Boudreaux MD [address] [place] [address] [place] [address] PCP - General 12/29/16 09/05/22 documented as of this encounter
--- OUTSIDE RECORDS SUMMARY | 2025-01-27 15:16 | XMS_ITS | Encounter Summary ---
Author Organization [facility] Address [address] [place] [address] Phone Care Team Providers Care Drafter Topographical Name Role Phone Pepito Boudreaux MD Primary Care Provider [phone] Encounter Details Date Type Department Care Team (Late st Contact Info) Description 09/14/[address] [facility] [place] Medicine [address] [place], [place] [address] Family Medicine, Physician [address] [place], [place] [address] Social History Tobacco Use Types Packs/Day Years [...] on filedocumented in this encounter Care Teams Drafter Topographical Relationship Specialty Start Date End Date Pepito Boudreaux MD [address] [place] [address] [place] [address] PCP - General 12/29/16 09/05/22 documented as of this encounter
--- OUTSIDE RECORDS SUMMARY | 2025-01-27 15:16 | XMS_ITS | Clinical Summary ---
Author Organization [facility] Address [address] [place] [address] [place] [address] Phone Care Team Providers Care Telecommunications Project Manager Name Role Phone Anni Daniel Primary Care Provider [phone] Allergies Active Allergy Reactions Criticality Noted Date Comments Latex Rash Medium 03/18/2021 Per pt. Tomato Rash High 03/18/2021 Per pt. Medications ibuprofen (ADVIL,MOTRIN) 600 MG tablet Take 1 tablet (600 mg total) by mouth 3 (three) times a day for 3 days. Then tid prn pain/inflamm ation 30 tablet 11/07/2024 Active predniSONE (DELTASONE) 10 MG tablet Take 4 tablets (40 mg total) by mouth daily for 5 days. 20 tablet 01/14/2025 01/20/20 25 Active Problems Problem Noted Date Diagnosed Date Depression 01/14/2025 Severe obesity 01/14/2025 Anxiety disorder 05/20/2020 Developmental delay 01/04/2016 Obesity, morbid (more than 1 00 lbs over ideal weight or BMI > 40) 12/02/2009 Encounters Date Type Department Care Team Description 01/14/2025 8:30 AM EDT Office Visit [facility] at [address] [address] Esperanza Hampton CNP Hives of unknown origin (Primary Dx) 11/07/2024 5:54 PM EDT Hospital Encounter [facility] [address] [place] [address] Lanette Hill FNP 11/07/2024 5:54 PM EDT Hospital Encounter [facility] [address] [place] [address] Lanette Hill FNP 11/07/2024 5:20 PM EDT Office Visit [facility] at [address] [address] Lanette Hill FNP Pain in both feet [...] Sign Reading Time Taken Comments Blood Pressure 144/78 01/14/2025 8:30 AM EDT Pulse 88 01/14/2025 8:30 AM EDT Temperature 36.6 C (97.8 F) 01/14/2025 8:30 AM EDT Respiratory Rate 17 01/14/2025 8:30 AM EDT Oxygen Saturation 98% 01/14/2025 8:30 AM EDT Inhaled Oxygen Concentration - - Weight [...] SMEAR 2020 Adult Td,Tdap Booster 12/19/2020 12/19/2010 INFLUENZA VACCINE (#1) 2024 COVID-19 VACCINE (2023-2 5 season) 2025 SMOKING Hx and SMOKELESS TOB ACCO SCREENING 01/14/2026 01/14/2025 HEPATITIS A VACCINES Aged Out No long [...] No fracture or dislocation of either foot. Lanettebeto Diegoes KERSEY DEPARTMENT SUPERVISOR IMG XR LOWER EXTREMITY Rosa Maria l [...] or dislocation of either foot. Lanette Hill KERSEY DEPARTMENT SUPERVISOR IMG XR LOWER EXTREMITY Rosa Maria l Result from Last 3 Months Insurance [facility] Member Subscriber Plan / Payer (Ef fective 2024-Present) Name:Bernice Kaur Relation to Subscriber:Self Name:Bernice Kaur Payer ID:Not on file Type:[facility] Address: [address] [facility] Member Subscriber Plan / Payer (Ef fective 2024-Present) Name:Bernice Kaur Relation to Subscriber:Self Name:Bernice Kaur Payer ID:Not on file Type:[facility] Address: [address] [facility] [employer] Care Teams Telecommunications Project Manager Relationship Specialty Start Date End Date Anni Daniel PA PCP - General Physician Broke Beater 11/07/24 Additional Source Comments The information contained in this document represents components of the legal health record. It is not the complete legal health record.[facility]
== END 2025-01-27 13:48 | disposition home or self-care (01) ==
LOC: HO.HMCFM 12:59
PROVIDERS: PCP Physician Assistant Medical; Visit Provider Nurse Practitioner Family
DX: L50.9 Urticaria, unspecified (principal); E66.01 Morbid (severe) obesity due to excess calories; Z68.43 Body mass index [BMI] 50.0-59.9, adult; Z09 Encounter for follow-up examination after completed treatment for conditions other than malignant neoplasm

== ENCOUNTER → 2025-01-27 12:59 | Outpatient (BNVA) | payer OTHER, MEDICAID, SELFPAY | PROVIDERS: PCP Physician Assistant Medical; Visit Provider Nurse Practitioner Family | DX: E66.01 Morbid (severe) obesity due to excess calories (principal); L50.8 Other urticaria; Z09 Encounter for follow-up examination after completed treatment for conditions other than malignant neoplasm; Z68.43 Body mass index [BMI] 50.0-59.9, adult | CPT/HCPCS: 96127 ==

== ENCOUNTER 2025-03-12 07:55 | Outpatient (AMB) | payer OTHER, MEDICAID, SELFPAY ==
--- OUTSIDE RECORDS SUMMARY | 2024-11-07 17:54 | XMS_ITS | Encounter Summary ---
Author Organization [facility] Address [address] [place] [address] [place] [address] Phone Care Team Providers Care Slot Machine Department Floorperson Name Role Phone Anni Daniel Primary Care Provider +1- [phone] Encounter Details Date Type Department Care Team (Late st Contact Info) Description 11/07/2024 5:54 PM EDT Hospital Encounter [facility] [address] [place] [address] Lanette Hill FNP [address] [place] [address] [email or web address] Social History Tobacco Use Types Packs/Day Years [...] dislocation of either foot. us Lanette Hill HAND TURNER IMG XR LOWER EXTREMITY Rosa Maria l Result documented in this encounter Visit Diagnoses Not on filedocumented in this encounter Care Teams Slot Machine Department Floorperson Relationship Specialty Start Date End Date Anni Daniel PA [address] [place] [address] PCP - General Physician [facility] Sales Manager 11/07/24 documented as of this encounter Additional Source Comments The information contained in this document represents components of the legal health record. It is not the complete legal health record.[facility]
--- OUTSIDE RECORDS SUMMARY | 2024-11-07 17:54 | XMS_ITS | Encounter Summary ---
Author Organization [facility] Address [address] [place] [address] [place] [address] Phone Care Team Providers Care Hoister Name Role Phone Anni Daniel Primary Care Provider +1- [phone] Encounter Details Date Type Department Care Team (Late st Contact Info) Description 11/07/2024 5:54 PM EDT Hospital Encounter [facility] [address] [place] [address] Lanette Hill FNP [address] [place] [address] [email or web address] Social History Tobacco Use Types Packs/Day Years [...] dislocation of either foot. us Lanette Hill CADDY IMG XR LOWER EXTREMITY Rosa Maria l Result documented in this encounter Visit Diagnoses Not on filedocumented in this encounter Care Teams Hoister Relationship Specialty Start Date End Date Anni Daniel PA [address] [place] [address] PCP - General Physician Aluminum Hydroxide Process Operator 11/07/24 documented as of this encounter Additional Source Comments The information contained in this document represents components of the legal health record. It is not the complete legal health record.[facility]
--- OUTSIDE RECORDS SUMMARY | 2025-02-02 16:35 | XMS_ITS | Encounter Summary ---
Author Organization [facility] Address [address] [place] [address] [place] [address] Phone Care Team Providers Care Head Neck Surgeon Name Role Phone Anni Daniel Primary Care Provider [phone] Encounter Details Date Type Department Care Team (Late st Contact Info) Description 02/02/2025 4:35 PM EDT Hospital Encounter [facility] [address] [place] [address] Esperanza Hampton CNP [address] [place] [address] Social History Tobacco Use Types Packs/Day Years [...] clinician's provided indication for this examination in [facility]: Dyspnea (Shortness of Breath); O2 sat 99%, [...] clinician's provided indication for this examination in [facility]:Dyspnea (Shortness of Breath); O2 sat 99%, no travel, HRT, no hemoptysis,c/o CP/ SOB COMPARISON: None. FINDINGS: Devices/Tubes/Lines: None. Lungs: Normal. The lungs are clear. No focal consolidation or pulmonaryedema. Pleura: Normal. No pleural effusion or pneumothorax. Heart/Mediastinum: Normal heart and mediastinum. Bones/Soft Tissues: Normal. No significant skeletal abnormality. IMPRESSION: Normal chest. us Esperanza Hampton LOCAL FLATBED DRIVER IMG XR CHEST Final Resul t documented in this encounter Visit Diagnoses Not on filedocumented in this encounter Care Teams Head Neck Surgeon Relationship Specialty Start Date End Date Anni Daniel PA [address] [place] [address] PCP - General Physician Vision Teacher 11/07/24 documented as of this encounter Additional Source Comments The information contained in this document represents components of the legal health record. It is not the complete legal health record.[facility]
[2025-03-12 07:58] VITALS: BP 112/86; PULSE 79; RESP 16; TEMP 36.8; O2SAT 95; BMI 55.8
--- NOTE | 2025-03-12 07:58 | MHC.PC.OV ---
Vital Signs 03/12/25 07:58 Height 5 ft 4 in Weight 325 lb 2 oz BMI 55.8 BP 112/86 Blood Pressure Location Rt brachial Position Sitting Respiration 16 Pulse 79 Pulse Source Pulse Oximeter Temp 98.2 F Temp Source Oral Pulse Oximetry (%) 95 Oxygen Delivery Method Room Air Intake Visit Reasons: CPE Intake Note: Physical Wiping Rag Washer Required: No Allergies latex Allergy (Mild, Verified 03/12/25 08:00) Rash triethanolamine Allergy (Mild, Verified 03/12/25 08:00) Rash Medication List - Last Reconciled 03/12/25 by Anni Daniel PA-C albuterol sulfate 90 mcg/actuation 1 inh inhalation QID PRN cetirizine (Zyrtec) 10 mg PO BID etonogestrel (Nexplanon) subdermal hydroxyzine HCl 10 mg PO TID PRN Tobacco use date assessed: 03/12/25 Dental Screening Dental Screen Date: 09/04/24 HPI CPE HPI Details Patient is a 24-year-old female who presents today for a physical. She states that she is having some adverse effects with the Zyrtec and hydroxyzine. She says that it makes her feel a little spacey/lightheaded. She is on this right now for ongoing urticaria. She has a follow up with Allergy and immunology. She states over the weekend she was at work and sat down on her break and when she went to get up she felt a little lightheaded. No chest pain, palpitations or shortness on breath. She did not lose consciousness. She denies any periods of prolonged fasting or dehydration. She wonders if it is related to the medication Pysch: She states that she has a history of anxiety and depression that waxes and wanes but is overall controlled with coping mechanisms in a good support system. 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 How often do you have a drink containing alcohol?: Never 3. How often do you have six or more drinks on one occasion?: Never Total Score: 0 MARLENI-7 AMB Questionnaire MARLENI-7 Date MARLENI - 7 assessed: 01/27/25 Source: Developed by Drs. Chino Cade, Lorelei Gonzalez, Manish Hilliard and colleagues, with an educational pattie from [employer]. Physical exam (Primary Care) Vital Signs: Last Vital Signs Temp 98.2 F 03/12/25 07:58 Pulse 79 03/12/25 07:58 Resp 16 03/12/25 07:58 BP 112/86 03/12/25 07:58 Pulse Ox 95 03/12/25 07:58 Oxygen Delivery Method Room Air 03/12/25 07:58 BMI result Body Mass Index 55.8 Tobacco/Smoking Status: Tobacco use Status Tobacco use date assessed 03/12/25 03/12/25 08:03 Patient Tobacco Use Status Never used Tobacco 03/12/25 08:03 e-Cigarette/Vaping Use Never Used 03/12/25 08:03 Thrive Assessment: Date of Thrive Assessment Date Thrive assessed 01/27/25 03/12/25 08:03 Const Orientation/consciousness: patient oriented x3 HENMT Ears: hearing grossly normal bilaterally and TM's normal bilaterally General nose exam: No nasal polyps present Face and sinus: Yes sinuses nontender Mouth: Normal oral and palatal mucosa present Eyes Pupils: Equal, round and reactive pupils present EOM: EOMs intact bilaterally Neck Neck: Yes full ROM and Yes no lymphadenopathy Thyroid: Thyroid normal Chest Chest palpation & inspection: normal inspection of the chest Resp Auscultation: clear to auscultation bilaterally Cardio Rate: regular rate Rhythm: regular rhythm Heart sounds: S1 normal heart sound present and S2 normal heart sound present Peripheral pulses: Peripheral pulses 2+ throughout GI Other: Soft, nontender Auscultation: normal bowel sounds Rectal Exam - Female: deferred General: Yes no CVA tenderness Back/Spine/Pelvis Other: Nontender Back: no CVA tenderness Skin General skin exam: no rashes or lesions noted Neuro General: patient oriented x3, gait normal, CN's II-XI intact bilaterally and deep tendon reflexes 2+ bilaterally Cranial nerves: Yes Equal, round and reactive pupils present Motor exam (neuro): 5/5 motor strength present throughout Sensory Exam: double simultaneous stimulation for sensation normal Coordination: [id number] test normal and Romberg test negative Extrem General: Yes normal to inspection and Yes full ROM Psych Affect: normal affect Attitude: cooperative Thought process: Normal thought process present Thought content: Normal thought content present Insight: Good insight present (Psych) Judgement: Good judgement present (Psych) Coding Level of Care Code Est Pt Prev Care 18-39y(11630) Diagnoses Encounter for routine history and physical examination Z00.00 Obesity, morbid, BMI 50 or higher E66.01 Anxiety with depression F41.8 Lightheaded R42 Assessment & Plan Assessment & Plan (1) Encounter for routine history and physical examination: Code(s): Z00.00 - Encounter for general adult medical examination without abnormal findings Plan: Health maintenance reviewed Flu shot ordered Labs ordered (2) Obesity, morbid, BMI 50 or higher: Code(s): E66.01 - Morbid (severe) obesity due to excess calories Category: Medical Plan: We will monitor labs. Encouraged diet and exercise (3) Anxiety with depression: Code(s): F41.8 - Other specified anxiety disorders Category: Medical Plan: Doing well. (4) Lightheaded: Code(s): R42 - Dizziness and giddiness Plan: Advised to monitor to see if these symptoms occur with the just the Zyrtec and hydroxyzine. I have advised her to increase her fluid intake. I have ordered labs today. She will follow up short term within a month if the symptoms are persisting. She will follow up sooner if anything worsens or changes. Patient understands and agrees with this plan. Orders: Orders Complete Blood Count Auto Diff Today E66.01 - Morbid (severe) obesity due to excess calories, F41.8 - Other specified anxiety disorders, L50.9 - Urticaria, unspecified, Z00.00 - Encounter for general adult medical examination without abnormal findings, Z01.89 - Encounter for other specified special examinations Comprehensive [place]. Panel Fast Today E66.01 - Morbid (severe) obesity due to excess calories, F41.8 - Other specified anxiety disorders, L50.9 - Urticaria, unspecified, Z00.00 - Encounter for general adult medical examination without abnormal findings, Z01.89 - Encounter for other specified special examinations Hemoglobin A1c Today E66.01 - Morbid (severe) obesity due to excess calories, F41.8 - Other specified anxiety disorders, L50.9 - Urticaria, unspecified, R73.01 - Impaired fasting glucose, Z00.00 - Encounter for general adult medical examination without abnormal findings, Z01.89 - Encounter for other specified special examinations UA CC w/rflx Micro + Cult Today E66.01 - Morbid (severe) obesity due to excess calories, F41.8 - Other specified anxiety disorders, L50.9 - Urticaria, unspecified, R30.0 - Dysuria, Z00.00 - Encounter for general adult medical examination without abnormal findings, Z01.89 - Encounter for other specified special examinations TSH reflex Free T4 Today E66.01 - Morbid (severe) obesity due to excess calories, F41.8 - Other specified anxiety disorders, L50.9 - Urticaria, unspecified, Z00.00 - Encounter for general adult medical examination without abnormal findings, Z01.89 - Encounter for other specified special examinations
--- OUTSIDE RECORDS SUMMARY | 2025-03-12 07:58 | XMS_ITS | Encounter Summary ---
Author Organization [facility] Address [address] [place] [address] Phone Care Team Providers Care Dishtank Operator Name Role Phone Pepito Boudreaux MD Primary Care Provider [phone] Encounter Details Date Type Department Care Team ([facility] st Contact Info) Description 01/04/2017 Conversion Encounter [facility] [address] [place] [address] Social History Tobacco Use Types Packs/Day Years [...] on filedocumented in this encounter Care Teams Dishtank Operator Relationship Specialty Start Date End Date Pepito Boudreaux MD [address] [place] [address] PCP - General 12/29/16 09/05/22 documented as of this encounter
--- OUTSIDE RECORDS SUMMARY | 2025-03-12 07:58 | XMS_ITS | Encounter Summary ---
Author Organization [facility] Address [address] [place] [address] Phone Care Team Providers Care Bed Placement Coordinator Name Role Phone Pepito Boudreaux MD Primary Care Provider [phone] Encounter Details Date Type Department Care Team (Late st Contact Info) Description 10/02/2009 Documentation [facility] Family Medicine [address] [place], [place] [id number] Family Medicine, Physician [address] [place], [place] [address] Social History Tobacco Use Types Packs/Day Years [...] on filedocumented in this encounter Care Teams Bed Placement Coordinator Relationship Specialty Start Date End Date Pepito Boudreaux MD [address] [place] [address] [place] [address] PCP - General 12/29/16 09/05/22 documented as of this encounter
--- OUTSIDE RECORDS SUMMARY | 2025-03-12 07:58 | XMS_ITS | Clinical Summary ---
Author Organization [facility] Address [address] [place] [address] Phone Care Team Providers Care Feed Crusher Operator Name Role Phone Unavailable Primary Care Provider [...] complete this topic Procedures * Due to [place] law, this organization might not be sharing sensitive test results. Procedure Name Priority Date/Time Associated Diagnosis Comments CHLAMYDIA AND GONORRHEA, AMPLIFIED Routine 05/10/2020 10:14 AM EST Screening examination for bacterial and spirochetal disease from Last 3 Months or Most Recently Relevant to Health Maintenance Results * Due to [place] law, this organization might not be sharing sensitive test results. * Chlamydia and Gonorrhoea, Amplified (05/10/2020 10:14 AM EST) Chlamydia Trachomatis, DNA Probe NEGATIVE (NEG) [facility] Comment: No Chlamydia Trachomatis RNA detected in this patient's sample (REFERENCE RANGE/NORMAL VALUE: NOT DETECTED) Note: This test uses provider service representative- mediated amplification method to detect rRNA from C. Trachomatis URINE GC AMP PROBE NEGATIVE (NEG) [facility] Comment: No Neisseria Gonorrhoeae RNA detected in this patient's sample (REFERENCE RANGE/NORMAL VALUE: NOT DETECTED) NOTE: This test uses provider service representative-mediated amplification method to detect rRNA from N.Gonorrhoeae. [...] without risk of sexual abuse. Consult the [facility] if needed. Contact phone number . Therapeutic failure or success cannot be determined with the Aptima Combo2 assay since nucleic acid may persist following appropriate antimicrobial therapy. The Centers for Disease Control and Prevention (CDC) recommends confirmatory retesting using culture or a different nucleic acid amplification test when positive results occur, if indicated. Testing performed or reported by [facility], a Service of [facility], [address] [place] [address] Chuckie Gray MD, Physician Vice President Urine 05/10/2020 10:1 4 AM EST 05/10/2020 10:41 AM EST us Pepito Boudreaux MD LAB MICROBIOLOGY - GENERAL ORDER DENICE Final Result [facility] from Last 3 Months or Most Recently Relevant to Health Maintenance
--- OUTSIDE RECORDS SUMMARY | 2025-03-12 07:58 | XMS_ITS | Encounter Summary ---
Author Organization [facility] Address [address] [place] [address] Phone Care Team Providers Care Poly Operator Name Role Phone Pepito Boudreaux MD Primary Care Provider Encounter Details Date Type Department Care Team (Late st Contact Info) Description 09/14/2014 Documentation [facility] [place] [address] [place], [place] [phone] Family Medicine, Physician [address] [place], [place] [address] Social History Tobacco Use Types Packs/Day Years [...] on filedocumented in this encounter Care Teams Poly Operator Relationship Specialty Start Date End Date Pepito Boudreaux MD [address] [place] [address] [place] [address] PCP - General 12/29/16 09/05/22 documented as of this encounter
--- OUTSIDE RECORDS SUMMARY | 2025-03-12 07:58 | XMS_ITS | Encounter Summary ---
Author Organization [facility] Address [address] [place] [address] Phone Care Team Providers Care Clip On Sunglasses Assembler Name Role Phone Pepito Boudreaux MD Primary Care Provider Encounter Details Date Type Department Care Team (Late st Contact Info) Description 09/27/2016 Documentation [facility] [place] Family Medicine [address] [place], [place] [id number] Family Medicine, Physician [address] [place] [address] Social History Tobacco Use Types Packs/Day Years [...] on filedocumented in this encounter Care Teams Clip On Sunglasses Assembler Relationship Specialty Start Date End Date Pepito Boudreaux MD [address] [place] [address] [place] [address] PCP - General 12/29/16 09/05/22 documented as of this encounter
--- OUTSIDE RECORDS SUMMARY | 2025-03-12 07:58 | XMS_ITS | Clinical Summary ---
Author Organization [facility] Address [address] [place] [address] [place] [address] Phone Care Team Providers Care Bookkeeping Machine Mechanic Name Role Phone Anni Daniel Primary Care Provider [phone] Allergies Active Allergy Reactions Criticality Noted Date Comments Latex Rash Medium 03/18/2021 Per pt. Medications ibuprofen (ADVIL,MOTRIN) 600 MG tablet Take 1 tablet (600 mg total) by mouth 3 (three) times a day for 3 days. Then tid prn pain/inflammat ion 30 tablet 5 Active cetirizine (ZYRTEC) 10 MG tablet Take 1 tablet by mouth 2 (two) times a day. 5 Active hydrOXYzine HCL (ATARAX) 10 MG tablet take 1 tablet by mouth three times daily as needed for itching 5 Active albuterol 90 mcg/actuation inhaler Inhale 2 puffs into the lungs every 6 (six) hours as needed for shortness of breath/dyspnea . 8 g 5 Active Active Problems Problem Noted Date Diagnosed Date Depression 01/14/2025 Severe obesity 01/14/2025 Anxiety disorder 05/20/2020 Developmental delay 01/04/2016 Obesity, morbid (more than 1 00 lbs over ideal weight or BMI > 40) 12/02/2009 Encounters Date Type Department Care Team Description 02/02/2025 4:35 PM EDT Hospital Encounter [facility] [address] [place] [address] Esperanza Hampton CNP 02/02/2025 2:30 PM EDT Office Visit [facility] at [address] [address] Esperanza Hampton CNP Shortness of breath (Primary Dx) 01/31/2025 11:30 AM EDT Office Visit [facility] at [address] [address] Dominick Randall PA-C Acute upper respiratory infection (Primary Dx) 01/14/2025 8:30 AM EDT Office Visit [facility] at [address] [address] Esperanza Hampton CNP Hives of unknown origin (Primary Dx) from Last 3 Months Social [...] Sign Reading Time Taken Comments Blood Pressure 132/84 02/02/2025 4:10 PM EDT Pulse 92 02/02/2025 4:10 PM EDT Temperature 36.8 C (98.3 F) 02/02/2025 4:10 PM EDT Respiratory Rate 18 02/02/2025 4:10 PM EDT Oxygen Saturation 99% 02/02/2025 4:10 PM EDT Inhaled Oxygen Concentration - - [...] 12/19/2010 INFLUENZA VACCINE (#1) 2024 COVID-19 VACCINE (1 - 2024-2 6 season) 2025 SMOKING Hx and SMOKELESS TOB [...] 02/02/2025 4:45 PM EDT Shortness of breath POCT RAPID STREP A Routine 01/31/2025 12:27 PM EDT POCT COVID-19 RT-PCR/INFLUENZA A & B/RSV CEPHEID Routine 01/31/2025 12:26 PM EDT from Last 3 Months Results * XR CHEST PA AND LATERAL 2 VIEWS (02/02/2025 4:45 PM EDT) Anatomical Region Laterality Modality Chest Computed Radiogr aphy 02/02/2025 5:08 PM EDT Impressions 02/02/2025 5:08 PM EDT Normal chest. Narrative 02/02/2025 5:08 PM EDT XR CHEST PA AND LATERAL 2 VIEWS Referring clinician's provided indication for this examination in [facility]: Dyspnea (Shortness of Breath); O2 sat 99%, [...] clinician's provided indication for this examination in [facility]:Dyspnea (Shortness of Breath); O2 sat 99%, no travel, HRT, no hemoptysis,c/o CP/ SOB COMPARISON: None. FINDINGS: Devices/Tubes/Lines: None. Lungs: Normal. The lungs are clear. No focal consolidation or pulmonaryedema. Pleura: Normal. No pleural effusion or pneumothorax. Heart/Mediastinum: Normal heart and mediastinum. Bones/Soft Tissues: Normal. No significant skeletal abnormality. IMPRESSION: Normal chest. Esperanza Hampton WATER TECHNICIAN IMG XR CHEST Final Resul t * POCT Rapid Strep A (01/31/2025 12:27 PM EDT) Pathologist [facility] Strep A, PCR Not Detected Not Detected C [facility] 01/31/2025 12:2 7 PM EDT 01/31/2025 12:54 PM EDT us Dominick Randall PALuisana POINT OF C ARE TEST ORDERABLES Final Result [facility] [address] [address], [facility] [phone] * POCT COVID-19 RT-PCR/Influenza A & B/RSV (Cepheid) (01/31/2025 12:26 PM EDT) RSV PCR Negative Negative [facility] SARS-CoV-2 (COVID-19) Negative Negative [facility] POC Influenza A PCR Negative Negative [facility] Influenza B PCR Negative Negative [facility] 01/31/2025 12:2 6 PM EDT 01/31/2025 1:06 PM EDT Dominick Randall PA-C POINT OF C ARE TEST ORDERABLES Final Result [facility] [address] [address], [facility] [phone] from Last 3 Months Insurance Member Subscriber Plan / Payer (Ef fective 2024-Present) Name:Bernice Kaur Relation to Subscriber:Self Name:Bernice Kaur Payer ID:Not on file [place] Address: [address] [facility] [employer] Care Teams Bookkeeping Machine Mechanic Relationship Specialty Start Date End Date Anni Daniel PA [address] [place] [phone] PCP - General Physician Advertising Account Manager 11/07/24 Additional Source Comments The information contained in this document represents components of the legal health record. It is not the complete legal health record.[facility]
== END 2025-03-12 08:34 | disposition home or self-care (01) ==
LOC: HO.HMCFM 07:56
PROVIDERS: PCP Physician Assistant; Visit Provider Physician Assistant
DX: Z00.00 Encounter for general adult medical examination without abnormal findings (principal); E66.01 Morbid (severe) obesity due to excess calories; Z68.43 Body mass index [BMI] 50.0-59.9, adult; F41.8 Other specified anxiety disorders; R42 Dizziness and giddiness; Z23 Encounter for immunization

== ENCOUNTER 2025-03-12 07:55 | Outpatient (REF) | payer OTHER, MEDICAID, SELFPAY ==
[2025-03-12 11:23] LABS: MANUAL DIFF FLAG NO
[2025-03-12 11:36] LABS: Appearance Urine Clear; Glucose Urine UA Negative (Negative); PH 5.5 (5.0-9.0); Specific Gravity - Urine 1.025 (1.005-1.025); UMIC TRIGGER UACC YES
[2025-03-12 11:44] LABS: Hematocrit 41.8 % (37.0-47.0); Hemoglobin 13.5 g/dl (12.0-16.0); Imm Gran Abs Auto 0.07 X10*3/uL (0.00-0.03); Imm Gran Pct Auto 0.5 % (0.0-0.4); Lymphocytes Absolute Auto 4.9 X10*3/uL (1.2-4.9); Mean Corpuscular HGB Conc 32.3 g/dl (31.0-35.0); Mean Corpuscular Hemoglobin 28.0 pg (27.0-33.0); Mean Corpuscular Volume 86.7 fL (80.0-98.0); NRBC Abs Auto 0.000 X10*3/uL (0.0-0.012); NRBC Pct Auto 0.0 /100WBC (0.0-0.2); Platelet Count 312 X10*3/uL (160-400); Red Blood Count 4.82 X10*6/uL (4.20-5.50); White Blood Count 13.7 X10*3/uL (4.8-10.8)
[2025-03-12 11:52] LABS: Alanine Aminotransferase 14 U/L (0-31); Albumin Level 4.1 g/dL (3.5-5.0); Alkaline Phosphatase 86 U/L (39-117); Anion Gap 9 (12-20); Aspartate Amino Transferase 21 U/L (5-31); Blood Urea Nitrogen 15 mg/dL (9-16); Calcium 9.3 mg/dL (8.4-10.2); Carbon Dioxide 26 mmol/L (22-29); Chloride 108 mmol/L (96-108); Estimated Glomerular Filt Rate > 60; Potassium 3.9 mmol/L (3.3-5.1); Sodium 139 mmol/L (135-145); Total Protein 7.3 g/dL (6.5-8.0)
== END 2025-03-12 07:56 | disposition home or self-care (01) ==
LOC: HO.WFDLDS 07:55
PROVIDERS: PCP Physician Assistant; Visit Provider Physician Assistant
DX: Z00.00 Encounter for general adult medical examination without abnormal findings (principal); Z01.89 Encounter for other specified special examinations; Z23 Encounter for immunization; E66.01 Morbid (severe) obesity due to excess calories; F41.8 Other specified anxiety disorders; L50.9 Urticaria, unspecified; R73.01 Impaired fasting glucose; R42 Dizziness and giddiness; Z68.43 Body mass index [BMI] 50.0-59.9, adult
CPT/HCPCS: 36415; 80053; 81001; 83036; 84443; 85025; 90471; 90656

== ENCOUNTER 2025-04-02 08:34 | Outpatient (REF) | payer OTHER, MEDICAID, SELFPAY ==
--- OUTSIDE RECORDS SUMMARY | 2024-11-07 16:54 | XMS_ITS | Encounter Summary ---
Author Organization [facility] Address [address] [place] [address] [place] [address] Phone Care Team Providers Care Pit Shoveler Name Role Phone Anni Daniel Primary Care Provider [phone] Encounter Details Date Type Department Care Team (Late st Contact Info) Description 11/07/2024 5:54 PM EDT Hospital Encounter [facility] [address] [place] [address] Lanette Hill FNP [address] [place] [id number] [email or web address] [place] Social History Tobacco Use [...] dislocation of either foot. us Lanette Hill DISTRIBUTING CLERK IMG XR LOWER EXTREMITY Rosa Maria l Result documented in this encounter Visit Diagnoses Not on filedocumented in this encounter Care Teams Pit Shoveler Relationship Specialty Start Date End Date Anni Daniel PA [address] [place] [address] PCP - General Physician Dance Entertainer 11/07/24 documented as of this encounter Additional Source Comments The information contained in this document represents components of the legal health record. It is not the complete legal health record.[facility]
--- OUTSIDE RECORDS SUMMARY | 2024-11-07 16:54 | XMS_ITS | Encounter Summary ---
Author Organization [facility] Address [address] [place] [address] [place] [address] Phone Care Team Providers Care Information Consultant Name Role Phone Anni Daniel Primary Care Provider +1- [phone] Encounter Details Date Type Department Care Team (Late st Contact Info) Description 11/07/2024 5:54 PM EDT Hospital Encounter [facility] [address] [place] [address] Lanette Hill FNP [address] [place] [address] [email or web address] Social History Tobacco Use Types Packs/Day Years [...] Comments XR FOOT 3 OR MORE VIEWS (RIGHT) Urgent/patient waiting 11/07/2024 6:03 PM EDT Pain in both feet documented in this encounter Results * XR FOOT 3 OR MORE VIEWS (RIGHT) (11/07/2024 6:03 PM EDT) Anatomical Region Laterality Modality Foot Right Computed Radiogr aphy 11/07/2024 6:44 PM EDT [...] dislocation of either foot. us Lanette Hill CONCRETE BATCHING PLANT OPERATOR IMG XR LOWER EXTREMITY Rosa Maria l Result documented in this encounter Visit Diagnoses Not on filedocumented in this encounter Care Teams Information Consultant Relationship Specialty Start Date End Date Anni Daniel PA [address] [place] [id number] PCP - General Physician Maple Sugar Maker 11/07/24 documented as of this encounter Additional Source Comments The information contained in this document represents components of the legal health record. It is not the complete legal health record.[facility]
--- OUTSIDE RECORDS SUMMARY | 2025-02-02 15:35 | XMS_ITS | Encounter Summary ---
Author Organization [facility] Address [address] [place] [address] [place] [address] Phone Care Team Providers Care Mitering Machine Operator Name Role Phone Anni Daniel Primary Care Provider [phone] Encounter Details Date Type Department Care Team (Late st Contact Info) Description 02/02/2025 4:35 PM EDT Hospital Encounter [facility] [address] [place] [address] Esperanza Hampton CNP [address] [place] [address] Social History Tobacco Use Types Packs/Day Years [...] Name Priority Date/Time Associated Diagnosis Comments XR CHEST PA AND LATERAL 2 VIEWS Urgent/patient waiting 02/02/2025 4:45 PM EDT Shortness of breath documented in this encounter Results * XR CHEST PA AND LATERAL 2 VIEWS (02/02/2025 4:45 PM EDT) Anatomical Region Laterality Modality Chest Computed Radiogr aphy 02/02/2025 5:08 PM EDT Impressions 02/02/2025 5:08 PM EDT Normal chest. Narrative 02/02/2025 5:08 PM EDT XR CHEST PA AND LATERAL 2 VIEWS Referring clinician's provided indication for this examination in [facility]: Dyspnea (Shortness of Breath); O2 sat 99%, no travel, HRT, no hemoptysis, c/o CP/ SOB COMPARISON: None. FINDINGS: Devices/Tubes/Lines: None. Lungs: Normal. The lungs are clear. No focal consolidation or pulmonary edema. Pleura: Normal. No pleural effusion or pneumothorax. Heart/Mediastinum: Normal heart and mediastinum. Bones/Soft Tissues: Normal. No significant skeletal abnormality. Procedure Note Arlene Fermin MD - 02/02/2025 XR CHEST PA AND LATERAL 2 VIEWS Referring clinician's provided indication for this examination in [facility]:Dyspnea (Shortness of Breath); O2 sat 99%, no travel, HRT, no hemoptysis,c/o CP/ SOB COMPARISON: None. FINDINGS: Devices/Tubes/Lines: None. Lungs: Normal. The lungs are clear. No focal consolidation or pulmonaryedema. Pleura: Normal. No pleural effusion or pneumothorax. Heart/Mediastinum: Normal heart and mediastinum. Bones/Soft Tissues: Normal. No significant skeletal abnormality. IMPRESSION: Normal chest. Esperanza Hampton CNP IMG XR CHEST Final Resul t documented in this encounter Visit Diagnoses Not on filedocumented in this encounter Care Teams Mitering Machine Operator Relationship Specialty Start Date End Date Anni Daniel PA [address] [place] [address] PCP - General Physician Transfer Specialist 11/07/24 documented as of this encounter Additional Source Comments The information contained in this document represents components of the legal health record. It is not the complete legal health record.[facility]
--- OUTSIDE RECORDS SUMMARY | 2025-03-15 11:10 | XMS_ITS | Encounter Summary ---
Author Organization [facility] Address [address] [place] [address] [place] [address] Phone Care Team Providers Care Medical Records Coordinator Name Role Phone Anni Daniel Primary Care Provider [phone]- [phone] Encounter Details Date Type Department Care Team (Late st Contact Info) Description 03/15/2025 12:10 PM EDT Hospital Encounter [facility] [address] [place] [address] Yolanda Gomez PA-C, MS [address] [place] [address] [email or web address] Social History Tobacco Use Types Packs/Day Years [...] Name Priority Date/Time Associated Diagnosis Comments XR TIBIA FIBULA 2 VIEWS (RIGHT) Urgent/patient waiting 03/15/2025 12:19 PM EDT Injury of right lower extremity, initial encounter documented in this encounter Results * XR Tibia Fibula 2 Views (Right) (03/15/2025 12:19 PM EDT) Anatomical Region Laterality Modality Leg Right Computed Radiogr aphy 03/15/2025 1:23 PM EDT Impressions 03/15/2025 1:23 PM EDT No fracture or dislocation. Narrative 03/15/2025 1:23 PM EDT XR TIBIA FIBULA 2 VIEWS (RIGHT) Referring clinician's provided indication for this examination in [facility]: Trauma; worker's comp right leg injury yesterday COMPARISON: None FINDINGS: No fracture. Normal alignment. No lytic or blastic lesion. Visualized portion of the knee and ankle appear normal. Mild ankle soft tissue swelling.. Procedure Note Merna Leblanc MD, PhD - 03/15/2025 XR TIBIA FIBULA 2 VIEWS (RIGHT) Referring clinician's provided indication for this examination in [facility]:Trauma; worker's comp right leg injury yesterday COMPARISON: None FINDINGS: No fracture. Normal alignment. No lytic or blastic lesion. Visualizedportion of the knee and ankle appear normal. Mild ankle soft tissueswelling.. IMPRESSION: No fracture or dislocation. Yolanda Gomez PA-C, MS IMG XR LOWER EXTRE MITY Final Result documented in this encounter Visit Diagnoses Not on filedocumented in this encounter Care Teams Medical Records Coordinator Relationship Specialty Start Date End Date Anni Daniel PA [address] [place] [id number] PCP - General Physician K [employer] School Principal 11/07/24 documented as of this encounter Additional Source Comments The information contained in this document represents components of the legal health record. It is not the complete legal health record.[facility]
--- OUTSIDE RECORDS SUMMARY | 2025-04-02 08:53 | XMS_ITS | Encounter Summary ---
Author Organization [facility] Address [address] [place] [address] Phone Care Team Providers Care Lining Maker Hand Name Role Phone Pepito Boudreaux MD Primary Care Provider [phone] Encounter Details Date Type Department Care Team (Late st Contact Info) Description 10/02/2009 Documentation [facility] Family Medicine [address] [place] [address] Family Medicine, Physician [address], [place] [id number] Social History Tobacco Use Types Packs/Day Years [...] on filedocumented in this encounter Care Teams Lining Maker Hand Relationship Specialty Start Date End Date Pepito Boudreaux MD [address] [place] [address] [place] [address] PCP - General 12/29/16 09/05/22 documented as of this encounter
--- OUTSIDE RECORDS SUMMARY | 2025-04-02 08:53 | XMS_ITS | Clinical Summary ---
Author Organization [facility] Address [address] [place] [address] Phone Care Team Providers Care Knitting Machine Fixer Head Name Role Phone Unavailable Primary Care Provider [...] complete this topic Procedures * Due to [employer] law, this organization might not be sharing sensitive test results. Procedure Name Priority Date/Time Associated Diagnosis Comments CHLAMYDIA AND GONORRHEA, AMPLIFIED Routine 05/10/2020 10:14 AM EST Screening examination for bacterial and spirochetal disease from Last 3 Months or Most Recently Relevant to Health Maintenance Results * Due to [employer] law, this organization might not be sharing sensitive test results. * Chlamydia and Gonorrhoea, Amplified (05/10/2020 10:14 AM EST) Chlamydia Trachomatis, DNA Probe NEGATIVE (NEG) [facility] Comment: No Chlamydia Trachomatis RNA detected in this patient's sample (REFERENCE RANGE/NORMAL VALUE: NOT DETECTED) Note: This test uses blood or blood bank technician- mediated amplification method to detect rRNA from C. Trachomatis URINE GC AMP PROBE NEGATIVE (NEG) [facility] Comment: No Neisseria Gonorrhoeae RNA detected in this patient's sample (REFERENCE RANGE/NORMAL VALUE: NOT DETECTED) NOTE: This test uses blood or blood bank technician-mediated amplification method to detect rRNA from N.Gonorrhoeae. [...] without risk of sexual abuse. Consult the [facility] if needed. Contact phone number . Therapeutic failure or success cannot be determined with the Aptima Combo2 assay since nucleic acid may persist following appropriate antimicrobial therapy. The Centers for Disease Control and Prevention (CDC) recommends confirmatory retesting using culture or a different nucleic acid amplification test when positive results occur, if indicated. Testing performed or reported by [facility], a Service of [facility], [address] [facility] [place] [address] Chuckie Gray MD, Head Cook Urine 05/10/2020 10:1 4 AM EST 05/10/2020 10:41 AM EST us Pepito Boudreaux MD LAB MICROBIOLOGY - GENERAL ORDER DENICE Final Result [facility] from Last 3 Months or Most Recently Relevant to Health Maintenance
--- OUTSIDE RECORDS SUMMARY | 2025-04-02 08:54 | XMS_ITS | Encounter Summary ---
Author Organization [facility] Address [address] [place] [address] Phone Care Team Providers Care Clinical Genetics Laboratory Chief Name Role Phone Pepito Boudreaux MD Primary Care Provider [phone] Encounter Details Date Type Department Care Team (Late st Contact Info) Description 09/27/2016 Documentation [facility] Family Medicine [address] [place], [place] [id number] Family Medicine, Physician [address] [place] [address] Social History Tobacco Use Types Packs/Day Years [...] on filedocumented in this encounter Care Teams Clinical Genetics Laboratory Chief Relationship Specialty Start Date End Date Pepito Boudreaux MD [address] [place] [address] [place] [address] PCP - General 12/29/16 09/05/22 documented as of this encounter
--- OUTSIDE RECORDS SUMMARY | 2025-04-02 08:54 | XMS_ITS | Clinical Summary ---
Author Organization [facility] Address [address] [place] [address] Phone Care Team Providers Care Rug Hooker Name Role Phone Anni Daniel Primary Care Provider [phone] Allergies Active Allergy Reactions Criticality Noted Date [...] of breath/dyspnea . 8 g 5 Active famotidine (PEPCID) 20 MG tablet Take 1 tablet by mouth 2 (two) times a day. 5 Active Active Problems Problem Noted Date Diagnosed Date Depression 01/14/2025 Severe obesity 01/14/2025 Anxiety disorder 05/20/2020 Developmental delay 01/04/2016 Obesity, morbid (more than 1 00 lbs over ideal weight or BMI > 40) 12/02/2009 Encounters Date Type Department Care Team Description 03/25/2025 2:20 PM EST Office Visit [facility] at [address] [address] Esperanza Hampton CNP Injury of muscle of right lower leg (Primary Dx) 03/15/2025 12:10 PM EDT Hospital Encounter [facility] [address] [place] [address] Yolanda Gomez PA-C, MS 03/15/2025 11:30 AM EDT Office Visit [facility] at [address] [address] Yolanda Gomez PA-C, MS Injury of right lower extremity, initial encounter (Primary Dx) 02/02/2025 4:35 PM EDT Hospital Encounter [facility] [address] [place] [address] Esperanza Hampton CNP 02/02/2025 2:30 PM EDT Office Visit [facility] at [address] [address] Esperanza Hampton CNP Shortness of breath (Primary Dx) 01/31/2025 11:30 AM EDT Office Visit [facility] at [address] [address] Dominick Randall PA-C Acute upper respiratory infection (Primary Dx) 01/14/2025 8:30 AM EDT Office Visit [facility] at [address] [address] Esperanza Hampton CNP Hives of unknown origin [...] Sign Reading Time Taken Comments Blood Pressure 139/89 03/25/2025 2:19 PM EST Pulse 77 03/25/2025 2:19 PM EST Temperature 36.3 C (97.3 F) 03/25/2025 2:19 PM EST Respiratory Rate 17 03/25/2025 2:19 PM EST Oxygen Saturation 97% 03/25/2025 2:1 9 PM EST Inhaled Oxygen Concentration - - Weight 147.4 kg (325 lb) 03/15/2025 11: 28 AM EDT patient reported Height 162.6 cm (5' 4 ) 03/15/2025 11:2 8 AM EDT patient reported Body Mass Index 55.79 03/15/2025 11:28 AM EDT Plan of Treatment Health Maintenance Due Date Last Done Comments DEPRESSION SCREENING 2011 HPV VACCINES (1 - 3-dose series) 2014 HEPATITIS C SCREENING 2017 HIV ONE-TIME SCREENING (18-65 YEARS) 2017 PAP SMEAR 2020 Adult Td,Tdap Booster 12/19/2020 12/19/2010 COVID-19 VACCINE ( season) 2025 SMOKING Hx and SMOKELESS TOBACCO SCREENING 01/14/2026 01/14/2025 IPV VACCINES Completed 06/09/2003, 11/18, 1999, Additional history exists INFLUENZA VACCINE Completed 03/12/2025 HEPATITIS A VACCINES Aged Out No long [...] Injury of right lower extremity, initial encounter XR CHEST PA AND LATERAL 2 VIEWS Urgent/patient waiting 02/02/2025 4:45 PM EDT Shortness of breath POCT RAPID STREP A Routine 01/31/2025 12:27 PM EDT POCT COVID-19 RT-PCR/INFLUENZA A & B/RSV CEPHEID Routine 01/31/2025 12:26 PM EDT from Last 3 Months Results * XR Tibia Fibula 2 Views (Right) (03/15/2025 12:19 PM EDT) Anatomical Region Laterality Modality Leg Right Computed Radiogr aphy 03/15/2025 1:23 PM EDT Impressions 03/15/2025 1:23 PM EDT No fracture or dislocation. Narrative 03/15/2025 1:23 PM EDT XR TIBIA FIBULA 2 VIEWS (RIGHT) Referring clinician's provided indication [facility]: Trauma; worker's comp right leg injury yesterday COMPARISON: None FINDINGS: No fracture. Normal alignment. No lytic or blastic lesion. Visualized portion of the knee and ankle appear normal. Mild ankle soft tissue swelling.. Procedure Note Merna Leblanc MD, PhD - 03/15/2025 XR TIBIA FIBULA 2 VIEWS (RIGHT) Referring clinician's provided indication for this examination [facility]:Trauma; worker's comp right leg injury yesterday COMPARISON: None FINDINGS: No fracture. Normal alignment. No lytic or blastic lesion. Visualizedportion of the knee and ankle appear normal. Mild ankle soft tissueswelling.. IMPRESSION: No fracture or dislocation. us Yolanda Fay Servant PA-C, MS IMG XR LOWER EXTRE MITY Final Result * XR CHEST PA AND LATERAL 2 VIEWS (02/02/2025 4:45 PM EDT) Anatomical Region Laterality Modality Chest Computed Radiogr aphy 02/02/2025 5:08 PM EDT Impressions 02/02/2025 5:08 PM EDT Normal chest. Narrative 02/02/2025 5:08 PM EDT XR CHEST PA AND LATERAL 2 VIEWS Referring clinician's provided indication for this examination [facility]: Dyspnea (Shortness of Breath); O2 [...] clinician's provided indication for this examination in [facility]:Dyspnea (Shortness of Breath); O2 sat 99%, no travel, HRT, no hemoptysis,c/o CP/ SOB COMPARISON: None. FINDINGS: Devices/Tubes/Lines: None. Lungs: Normal. The lungs are clear. No focal consolidation or pulmonaryedema. Pleura: Normal. No pleural effusion or pneumothorax. Heart/Mediastinum: Normal heart and mediastinum. Bones/Soft Tissues: Normal. No significant skeletal abnormality. IMPRESSION: Normal chest. us Esperanza Hampton ELECTRONIC SECURITY SPECIALIST IMG XR CHEST Final Resul t * POCT Rapid Strep A (01/31/2025 12:27 PM EDT) Strep A, PCR Not Detected Not Detected C [facility] [place] 01/31/2025 12:2 7 PM EDT 01/31/2025 12:54 PM EDT Dominick Randall PA-C LAB POCT E NTER/EDIT ORDERABLES Final Result [facility] [address] [address], [facility] [phone] * POCT COVID-19 RT-PCR/Influenza A & B/RSV (Cepheid) (01/31/2025 12:26 PM EDT) [facility] RSV PCR Negative Negative [facility] [place] SARS-CoV-2 (COVID-19) Negative Negative [facility] [place] POC Influenza A PCR Negative Negative [facility] [place] [facility] Influenza B PCR Negative Negative [facility] [place] 01/31/2025 12:2 6 PM EDT 01/31/2025 1:06 PM EDT Dominick Randall PA-C LAB POCT E NTER/EDIT ORDERABLES Final Result [facility] [address] [address], [facility] [phone] from Last 3 Months Insurance [facility] HMO [facility] HMO Member Subscriber Plan / Payer (Ef fective 2024-) Name:Bernice Clemons Relation to Subscriber:Self Name:Bernice Clemons Payer ID:Not on file Type:HMO Address: [address] [facility] H[facility] [place] [address] [employer]URANCE Care Teams Rug Hooker Relationship Specialty Start Date End Date Anni Daniel PA [address] [place] [address] PCP - General Physician Traffic Counter 11/07/24 Additional Source Comments The information contained in this document represents components of the legal health record. It is not the complete legal health record.[facility]
--- OUTSIDE RECORDS SUMMARY | 2025-04-02 08:54 | XMS_ITS | Encounter Summary ---
Author Organization [facility] Address [address] [place] [address] Phone Care Team Providers Care Shredding Machine Tender Name Role Phone Pepito Boudreaux MD Primary Care Provider [phone] Encounter Details Date Type Department Care Team (Late st Contact Info) Description 09/14/2014 Documentation [facility] [place] [address] [place], [place] [id number] Family Medicine, Physician [address] [place], [place] [address] Social History Tobacco Use Types Packs/Day Years [...] on filedocumented in this encounter Care Teams Shredding Machine Tender Relationship Specialty Start Date End Date Pepito Boudreaux MD [address] [place] [address] [place] [address] PCP - General 12/29/16 09/05/22 documented as of this encounter
--- OUTSIDE RECORDS SUMMARY | 2025-04-02 08:54 | XMS_ITS | Encounter Summary ---
Author Organization [facility] Address [address] [place] [address] Phone Care Team Providers Care Chip Person Name Role Phone Pepito Boudreaux MD Primary Care Provider [phone] Encounter Details Date Type Department Care Team ([facility] st Contact Info) Description 01/04/2017 Conversion Encounter [facility] [address] [place] [address] Social History Tobacco Use Types Packs/Day Years [...] on filedocumented in this encounter Care Teams Chip Person Relationship Specialty Start Date End Date Pepito Boudreaux MD [address] [place] [address] PCP - General 12/29/16 09/05/22 documented as of this encounter
[2025-04-02 11:29] LABS: MANUAL DIFF FLAG NO
[2025-04-02 11:34] LABS: Appearance Urine Turbid; Glucose Urine UA Negative (Negative); PH 6.0 (5.0-9.0); Specific Gravity - Urine 1.025 (1.005-1.025); UMIC TRIGGER UACC YES
[2025-04-02 11:37] LABS: Hematocrit 42.0 % (37.0-47.0); Hemoglobin 13.7 g/dl (12.0-16.0); Imm Gran Abs Auto 0.08 X10*3/uL (0.00-0.03); Imm Gran Pct Auto 0.7 % (0.0-0.4); Lymphocytes Absolute Auto 4.7 X10*3/uL (1.2-4.9); Mean Corpuscular HGB Conc 32.6 g/dl (31.0-35.0); Mean Corpuscular Hemoglobin 28.0 pg (27.0-33.0); Mean Corpuscular Volume 85.9 fL (80.0-98.0); NRBC Abs Auto 0.000 X10*3/uL (0.0-0.012); NRBC Pct Auto 0.0 /100WBC (0.0-0.2); Platelet Count 322 X10*3/uL (160-400); Red Blood Count 4.89 X10*6/uL (4.20-5.50); White Blood Count 11.8 X10*3/uL (4.8-10.8)
[2025-04-02 11:45] LABS: UACC Culture Trigger YES
== END 2025-04-02 08:35 | disposition home or self-care (01) ==
LOC: HO.WFDLDS 08:34
PROVIDERS: Visit Provider Physician Assistant
DX: Z00.00 Encounter for general adult medical examination without abnormal findings (principal); Z01.89 Encounter for other specified special examinations; D72.829 Elevated white blood cell count, unspecified; E66.01 Morbid (severe) obesity due to excess calories; L50.9 Urticaria, unspecified; R30.0 Dysuria; F41.8 Other specified anxiety disorders
CPT/HCPCS: 36415; 81001; 85025; 87086

== ENCOUNTER 2025-04-21 11:25 | Outpatient (REF) | payer OTHER, MEDICAID, SELFPAY ==
--- OUTSIDE RECORDS SUMMARY | 2024-11-07 16:54 | XMS_ITS | Encounter Summary ---
Author Organization [facility] Address [address] [place] [address] [place] [address] Phone Care Team Providers Care Animal Husbandry Professor Name Role Phone Anni Daniel Primary Care Provider [phone] Encounter Details Date Type Department Care Team (Late st Contact Info) Description 11/07/2024 5:54 PM EDT Hospital Encounter [facility] [address] [place] [address] Lanette iHll FNP [address] [place] [address] [email or web address] [place] Social History Tobacco Use Types Packs/Day Years Used Date Smoking Tobacco: Never Smokeless Tobacco: Never Education Answer Date Recorded Are you interested in more education? Not on darian e 09/16/2022 Are you concerned about learning? Not on file 09/16/2022 No 09/16/2022 No 09/16/2022 Digital Access Answer Date Recorded No 10/17/2022 No 10/17/2022 Reliable internet access at home? Not on file 10/17/2022 Device with a working camera? Not on file Comments Unknown Sex and Gender Information Value Date Recorded Sex Assigned at Not on file Legal Sex Female 1:39 PM EST Gender Identity Not on file Sexual Orientation Not on file documented as of this encounter Plan of Treatment Not on file documented as of this encounter Procedures Procedure Name Priority Date/Time Associated Diagnosis Comments XR FOOT 3 OR MORE VIEWS (LEFT) Urgent/patient waiting 11/07/2024 6:03 PM EDT Pain in both feet documented in this encounter Results * XR FOOT 3 OR MORE VIEWS (LEFT) (11/07/2024 6:03 PM EDT) Anatomical Region Laterality Modality Foot Left Computed Radiogr aphy 11/07/2024 6:44 PM EDT Impressions 11/07/2024 6:45 PM EDT No fracture or dislocation of either foot. Narrative 11/07/2024 6:45 PM EDT XR FOOT 3 OR MORE VIEWS (LEFT), XR FOOT 3 OR MORE VIEWS (RIGHT) Referring clinician's provided indication for this examination in Epic: Pain; 10 days ago, pain and pop over 5th mcp while walking. still hurts COMPARISON: None FINDINGS: Left foot: Normal alignment. Normal joint spaces. No soft tissue swelling. Right foot: Normal alignment. Normal joint spaces. No soft tissue swelling. Procedure Note Beny Alonzo MD, PhD - 11/07/2024 XR FOOT 3 OR MORE VIEWS (LEFT), XR FOOT 3 OR MORE VIEWS (RIGHT) Referring clinician's provided indication for this examination in Epic:Pain; 10 days ago, pain and pop over 5th mcp while walking. still hurts COMPARISON: None FINDINGS: Left foot: Normal alignment. Normal joint spaces. No soft tissue swelling. Right foot: Normal alignment. Normal joint spaces. No soft tissueswelling. IMPRESSION: No fracture or dislocation of either foot. us Lanette Hill ASSEMBLER SKYLIGHTS IMG XR LOWER EXTREMITY Rosa Maria l Result documented in this encounter Visit Diagnoses Not on filedocumented in this encounter Care Teams Animal Husbandry Professor Relationship Specialty Start Date End Date Anni Daniel PA [address] [place] [address] PCP - General Physician Soldering Inspector 11/07/24 documented as of this encounter Additional Source Comments The information contained in this document represents components of the legal health record. It is not the complete legal health record.[facility]
--- OUTSIDE RECORDS SUMMARY | 2024-11-07 16:54 | XMS_ITS | Encounter Summary ---
Author Organization [facility] Address [address] [place] [address] [place] [address] Phone Care Team Providers Care Firesetter Name Role Phone Anni Daniel Primary Care Provider +1- [phone] Encounter Details Date Type Department Care Team (Late st Contact Info) Description 11/07/2024 5:54 PM EDT Hospital Encounter [facility] [address] [place] [address] Lanette Hill FNP [address] [place] [address] [email or web address] Social History Tobacco Use Types Packs/Day Years [...] dislocation of either foot. us Lanette Hill LATEX FOAM WORKER IMG XR LOWER EXTREMITY Rosa Maria l Result documented in this encounter Visit Diagnoses Not on filedocumented in this encounter Care Teams Firesetter Relationship Specialty Start Date End Date Anni Daniel PA [address] [place] [id number] PCP - General Physician Senior Android Developer 11/07/24 documented as of this encounter Additional Source Comments The information contained in this document represents components of the legal health record. It is not the complete legal health record.[facility]
--- OUTSIDE RECORDS SUMMARY | 2025-02-02 15:35 | XMS_ITS | Encounter Summary ---
Author Organization [facility] Address [address] [place] [address] [place] [address] Phone Care Team Providers Care Home School Liaison Officer Name Role Phone Anni Daniel Primary Care Provider [phone] Encounter Details Date Type Department Care Team (Late st Contact Info) Description 02/02/2025 4:35 PM EDT Hospital Encounter [facility] [address] [place] [address] Esperanza Hampton CNP [address] [place] [phone] [email or web address] Social History Tobacco Use Types Packs/Day Years [...] clinician's provided indication for this examination in [facility]: Dyspnea (Shortness of Breath); O2 sat 99%, [...] clinician's provided indication for this examination in [facility]:Dyspnea (Shortness of Breath); O2 sat 99%, no [...] on filedocumented in this encounter Care Teams Home School Liaison Officer Relationship Specialty Start Date End Date Anni Daniel PA [address] [place] [address] PCP - General Physician Dumpman 11/07/24 documented as of this encounter Additional Source Comments The information contained in this document represents components of the legal health record. It is not the complete legal health record.[facility]
--- OUTSIDE RECORDS SUMMARY | 2025-03-15 11:10 | XMS_ITS | Encounter Summary ---
Author Organization [facility] Address [address] [place] [address] [place] [address] Phone Care Team Providers Care Journalist Name Role Phone Anni Daniel Primary Care Provider [phone] Encounter Details Date Type Department Care Team (Late st Contact Info) Description 03/15/2025 12:10 PM EDT Hospital Encounter [facility] [address] [place] [address] Yolanda Gomez PA-C, MS [address] [place] [address] [email or web address] Social History Tobacco Use Types Packs/Day Years [...] clinician's provided indication for this examination in [facility]: Trauma; worker's comp right leg injury yesterday COMPARISON: None FINDINGS: No fracture. Normal alignment. No lytic or blastic lesion. Visualized portion of the knee and ankle appear normal. Mild ankle soft tissue swelling.. Procedure Note Merna Leblanc MD, PhD - 03/15/2025 XR TIBIA FIBULA 2 VIEWS (RIGHT) Referring clinician's provided indication for this examination in [facility]:Trauma; worker's comp right leg injury yesterday COMPARISON: None FINDINGS: No fracture. Normal alignment. No lytic or blastic lesion. Visualizedportion of the knee and ankle appear normal. Mild ankle soft tissueswelling.. IMPRESSION: No fracture or dislocation. Yolanda Gomez PA-C, MS IMG XR LOWER EXTRE MITY Final Result documented in this encounter Visit Diagnoses Not on filedocumented in this encounter Care Teams Journalist Relationship Specialty Start Date End Date Anni Daniel PA [address] [place] [id number] PCP - General Physician Logistics Specialist 11/07/24 documented as of this encounter Additional Source Comments The information contained in this document represents components of the legal health record. It is not the complete legal health record.[facility]
--- OUTSIDE RECORDS SUMMARY | 2025-04-21 13:35 | XMS_ITS | Encounter Summary ---
Author Organization [facility] Address [address] [place] [address] Phone Care Team Providers Care Obstetrical Anesthesiologist Name Role Phone Pepito Boudreaux MD Primary Care Provider [phone] Encounter Details Date Type Department Care Team (Late st Contact Info) Description 10/02/2009 Documentation [facility] [place] Family Medicine [address] [place] [address] Family Medicine, Physician [address] [place], [place] [address] Social History Tobacco Use Types Packs/Day Years [...] on filedocumented in this encounter Care Teams Obstetrical Anesthesiologist Relationship Specialty Start Date End Date Pepito Boudreaux MD [address] [place] [address] [place] [address] PCP - General 12/29/16 09/05/22 documented as of this encounter
--- OUTSIDE RECORDS SUMMARY | 2025-04-21 13:35 | XMS_ITS | Clinical Summary ---
Author Organization [facility] Address [address] [place] [address] Phone Care Team Providers Care Life Insurance Sales Agent Name Role Phone Unavailable Primary Care Provider [...] complete this topic Procedures * Due to [place] Higgle law, this organization might not be sharing sensitive test results. Procedure Name Priority Date/Time Associated Diagnosis Comments CHLAMYDIA AND GONORRHEA, AMPLIFIED Routine 05/10/2020 10:14 AM EST Screening examination for bacterial and spirochetal disease from Last 3 Months or Most Recently Relevant to Health Maintenance Results * Due to [place] Hig[place] law, this organization might not be sharing sensitive test results. * Chlamydia and Gonorrhoea, Amplified (05/10/2020 10:14 AM EST) Chlamydia Trachomatis, DNA Probe NEGATIVE (NEG) [facility] Comment: No Chlamydia Trachomatis RNA detected in this patient's sample (REFERENCE RANGE/NORMAL VALUE: NOT DETECTED) Note: This test uses grade school teacher- mediated amplification method to detect rRNA from C. Trachomatis URINE GC AMP PROBE NEGATIVE (NEG) [facility] Comment: No Neisseria Gonorrhoeae RNA detected in this patient's sample (REFERENCE RANGE/NORMAL VALUE: NOT DETECTED) NOTE: This test uses grade school teacher-mediated amplification method to detect rRNA from N.Gonorrhoeae. [...] without risk of sexual abuse. Consult the [facility] if needed. Contact phone number . Therapeutic failure or success cannot be determined with the Aptima Combo2 assay since nucleic acid may persist following appropriate antimicrobial therapy. The Centers for Disease Control and Prevention (CDC) recommends confirmatory retesting using culture or a different nucleic acid amplification test when positive results occur, if indicated. Testing performed or reported by [facility], a Service of [facility], [address] [place] [address] Chuckie Gray MD, Poly Operator Urine 05/10/2020 10:1 4 AM EST 05/10/2020 10:41 AM EST us Pepito Boudreaux MD LAB MICROBIOLOGY - GENERAL ORDER DENICE Final Result [facility] from Last 3 Months or Most Recently Relevant to Health Maintenance
--- OUTSIDE RECORDS SUMMARY | 2025-04-21 13:36 | XMS_ITS | Clinical Summary ---
Author Organization [facility] Address [address] [place] [address] Phone Care Team Providers Care Contract Agent Name Role Phone Anni Daniel Primary Care Provider [phone] Allergies Active Allergy Reactions Criticality Noted Date [...] Description 03/25/2025 2:20 PM EST Office Visit [facility] at [address] [address] Esperanza Hampton CNP Injury of muscle of right lower leg (Primary Dx) 03/15/2025 12:10 PM EDT Hospital Encounter [facility] [address] [place] [address] Yolanda Gomez PA-C, MS 03/15/2025 11:30 AM EDT Office Visit [facility] at [address] [address] Yolanda Gomez PA-C, MS Injury of right lower extremity, initial encounter (Primary Dx) 02/02/2025 4:35 PM EDT Hospital Encounter [facility] [address] [place] [address] Esperanza Hampton CNP 02/02/2025 2:30 PM EDT Office Visit [facility] at [address] [address] Esperanza Hampton CNP Shortness of breath (Primary Dx) 01/31/2025 11:30 AM EDT Office Visit [facility] [address] [address] Dominick Randall PA-C Acute upper respiratory infection (Primary Dx) from Last 3 Months Social [...] Adult Td,Tdap Booster 12/19/2020 12/19/2010 COVID-19 VACCINE (2024-2 6 season) 2025 SMOKING Hx and SMOKELESS TOB ACCO SCREENING 01/14/2026 01/14/2025 INFLUENZA VACCINE Completed 03/12/2025 HEPATITIS A VACCINES [...] for this examination in [facility]: Trauma; worker's comp right leg injury yesterday COMPARISON: None FINDINGS: No fracture. Normal alignment. No lytic or blastic lesion. Visualized portion of the knee and ankle appear normal. Mild ankle soft tissue swelling.. Procedure Note Merna Leblanc MD, PhD - 03/15/2025 XR TIBIA FIBULA 2 VIEWS (RIGHT) Referring clinician's provided indication for this examination in [facility]:Trauma; worker's comp right leg injury yesterday COMPARISON: None FINDINGS: No fracture. Normal alignment. No lytic or blastic lesion. Visualizedportion of the knee and ankle appear normal. Mild ankle soft tissueswelling.. IMPRESSION: No fracture or dislocation. us Yolanda Gomez PA-C, MS IMG XR LOWER [...] for this examination in [facility]: Dyspnea (Shortness of Breath); O2 sat 99%, [...] for this examination in [facility]:Dyspnea (Shortness of Breath); O2 sat 99%, no travel, HRT, no hemoptysis,c/o CP/ SOB COMPARISON: None. FINDINGS: Devices/Tubes/Lines: None. Lungs: Normal. The lungs are clear. No focal consolidation or pulmonaryedema. Pleura: Normal. No pleural effusion or pneumothorax. Heart/Mediastinum: Normal heart and mediastinum. Bones/Soft Tissues: Normal. No significant skeletal abnormality. IMPRESSION: Normal chest. Esperanza Hampton VERIFY REP IMG XR CHEST Final Resul t * POCT Rapid Strep A (01/31/2025 12:27 PM EDT) Strep A, PCR Not Detected Not Detected [facility] [place] 01/31/2025 12:2 7 PM EDT 01/31/2025 12:54 PM EDT Dominick Randall PA-C LAB POCT E NTER/EDIT ORDERABLES Final Result [facility] AT [address] [address] [phone] * POCT COVID-19 RT-PCR/Influenza A & B/RSV (Cepheid) (01/31/2025 12:26 PM EDT) [facility] RSV PCR Negative Negative [facility] [place] SARS-CoV-2 (COVID-19) Negative Negative [facility] [place] POC Influenza A PCR Negative Negative [facility] [place] POC Influenza B PCR Negative Negative [facility] [place] 01/31/2025 12:2 6 PM EDT 01/31/2025 1:06 PM EDT Dominick Randall PA-C LAB POCT E NTER/EDIT ORDERABLES Final Result [facility] AT [address] [address] [phone] from Last 3 Months Insurance [facility] INSURANCE Care Teams Contract Agent Relationship Specialty Start Date End Date Anni Daniel PA [address] [place] [address] PCP - General Physician Industrial Safety And Health Technician 11/07/24 Additional Source Comments The information contained in this document represents components of the legal health record. It is not the complete legal health record.[facility]
--- OUTSIDE RECORDS SUMMARY | 2025-04-21 13:36 | XMS_ITS | Encounter Summary ---
Author Organization [facility] Address [address] [place] [address] Phone Care Team Providers Care Office Professional Name Role Phone Pepito Boudreaux MD Primary Care Provider [phone] Encounter Details Date Type Department Care Team (Late st Contact Info) Description 09/14/2014 Documentation [facility] [place] [address] [place], [place] [id number] Family Medicine, Physician [address], [place] [phone] Social History Tobacco Use Types Packs/Day Years [...] on filedocumented in this encounter Care Teams Office Professional Relationship Specialty Start Date End Date Pepito Boudreaux MD [address] [place] [address] [place] [address] PCP - General 12/29/16 09/05/22 documented as of this encounter
--- OUTSIDE RECORDS SUMMARY | 2025-04-21 13:36 | XMS_ITS | Encounter Summary ---
Author Organization [facility] Address [address] [place] [address] Phone Care Team Providers Care Audiologist Name Role Phone Pepito Boudreaux MD Primary Care Provider [phone] Encounter Details Date Type Department Care Team ([facility] st Contact Info) Description 01/04/2017 Conversion Encounter [facility] [address] [place] [address] Social History Tobacco Use Types Packs/Day Years [...] on filedocumented in this encounter Care Teams Audiologist Relationship Specialty Start Date End Date Pepito Boudreaux MD [address] [place] [address] PCP - General 12/29/16 09/05/22 documented as of this encounter
--- OUTSIDE RECORDS SUMMARY | 2025-04-21 13:36 | XMS_ITS | Encounter Summary ---
Author Organization [facility] Address [address] [place] [address] Phone Care Team Providers Care Nail Feeder Name Role Phone Pepito Boudreaux MD Primary Care Provider [phone] Encounter Details Date Type Department Care Team (Late st Contact Info) Description 09/27/[address] [facility] [place] Family Medicine [address] [place], [place] [id number] Family Medicine, Physician [address] [place] [address] Social History Tobacco Use Types Packs/Day Years [...] on filedocumented in this encounter Care Teams Nail Feeder Relationship Specialty Start Date End Date Pepito Boudreaux MD [address] [place] [address] [place] [address] PCP - General 12/29/16 09/05/22 documented as of this encounter
[2025-04-21 15:09] LABS: Appearance Urine Turbid; Glucose Urine UA Negative (Negative); PH 6.0 (5.0-9.0); Specific Gravity - Urine >= 1.030 (1.005-1.025); UMIC TRIGGER UACC YES
[2025-04-21 15:13] LABS: UACC Culture Trigger YES
== END 2025-04-21 11:26 | disposition home or self-care (01) ==
LOC: HO.WFDLDS 11:25
PROVIDERS: Visit Provider Physician Assistant
DX: Z00.00 Encounter for general adult medical examination without abnormal findings (principal); R30.0 Dysuria; F41.8 Other specified anxiety disorders; L50.9 Urticaria, unspecified; E66.01 Morbid (severe) obesity due to excess calories; Z01.89 Encounter for other specified special examinations
CPT/HCPCS: 81001; 81003; 87086